=== PATIENT | female | born 1965 | race Hispanic/Latino ===

== ENCOUNTER 2022-01-09 20:35 | Inpatient (IN) | payer MEDICARE ==
[2022-01-09] MEDS ORDERED: LEVALBUTEROL 0.63 MG/3 ML NEBU IH ONE ×2 (21:16→21:17)
--- NOTE | 2022-01-09 21:23 | Emergency Department Report ---
ED General Adult HPI - General Stated complaint: SOB PUI?: Yes Time Seen by Provider: 01/09/22 21:12 Source: RN/MD - History of Present Illness Initial comments: Information was obtained from the day nurse who left for the day. According to nurse, EMS brought here patient with medical history of COPD was found short of breath and albuterol Solu-Medrol and also magnesium sulfate was given in route. On my arrival patient was satting in mid 80s on nonrebreather; immediate verbal orders was to get an RT to put the patient on BiPAP. At the time my initial evaluation review of system was unobtainable given that patient was confused but easily arousable. 1 hour after patient in the ER, daughter came and provided additional information. Daughter states mother has history of COPD on oxygen, seizure, schizophrenia, anxiety, depression; she called 911 because mother was confused when she came home. The daughter denies any myocardial infarction, congestive heart failure, stroke, diabetes, or hypertension of the mother. During my reevaluation of the patient, patient is on BiPAP satting in mid 90s and easily arousable but doze off easily. - Related Data Allergies Allergy/AdvReac Type Severity Reaction Status Date / Time Penicillins Allergy Shortness Verified 01/09/22 22:04 of Breath ED Review of Systems ROS: Stated complaint: SOB Other details as noted in HPI Comment: Unobtainable due to pts medical conditions ED Past Medical Hx - Past Medical History Previous Medical History?: Yes Hx COPD: Yes ED Physical Exam - General Limitations: Altered Mental Status - Head Head exam: Present: atraumatic, normocephalic, normal inspection - Eye Eye exam: Present: normal appearance, PERRL, EOMI Pupils: Present: normal accommodation - ENT ENT exam: Present: normal exam, mucous membranes moist - Neck Neck exam: Present: normal inspection, full ROM - Respiratory Respiratory exam: Present: normal lung sounds bilaterally - Cardiovascular Cardiovascular Exam: Present: regular rate, normal rhythm, normal heart sounds - GI/Abdominal GI/Abdominal exam: Present: soft - Extremities Exam Extremities exam: Present: normal inspection, full ROM, normal capillary refill - Back Exam Back exam: Present: normal inspection, full ROM - Neurological Exam Neurological exam: Present: altered - Skin Skin exam: Present: normal color ED Course Vital Signs 01/09/22 01/09/22 01/09/22 20:41 21:12 21:15 Temperature Pulse Rate 118 H 118 H Pulse Rate [ Throughout] Respiratory 30 H 16 39 H Rate Respiratory Rate [ Throughout] Blood Pressure Blood Pressure [Right] O2 Sat by Pulse 94 96 Oximetry 01/09/22 01/09/22 01/09/22 21:31 21:45 22:01 Temperature Pulse Rate 120 H 116 H 114 H Pulse Rate [ Throughout] Respiratory 37 H 27 H 40 H Rate Respiratory Rate [ Throughout] Blood Pressure Blood Pressure [Right] O2 Sat by Pulse 98 95 97 Oximetry 01/09/22 01/09/22 01/09/22 22:05 22:14 22:15 Temperature 100.6 F H Pulse Rate 114 H 113 H Pulse Rate [ Throughout] Respiratory 26 H 35 H Rate Respiratory Rate [ Throughout] Blood Pressure 93/55 93/55 Blood Pressure 93/55 [Right] O2 Sat by Pulse 94 95 96 Oximetry 01/09/22 01/09/22 01/09/22 22:31 22:45 22:47 Temperature Pulse Rate 107 H 103 H Pulse Rate [ 105 H Throughout] Respiratory 34 H 36 H Rate Respiratory 26 H Rate [ Throughout] Blood Pressure 94/50 94/50 Blood Pressure [Right] O2 Sat by Pulse 96 97 Oximetry 01/09/22 01/09/22 01/10/22 23:01 23:15 00:29 Temperature Pulse Rate 108 H 109 H Pulse Rate [ Throughout] Respiratory 35 H 29 H 29 H Rate Respiratory Rate [ Throughout] Blood Pressure 102/55 102/55 102/55 Blood Pressure [Right] O2 Sat by Pulse 95 94 100 Oximetry 01/10/22 01/10/22 01/10/22 00:31 00:45 01:01 Temperature Pulse Rate Pulse Rate [ Throughout] Respiratory 30 H 29 H 36 H Rate Respiratory Rate [ Throughout] Blood Pressure 102/55 102/55 102/55 Blood Pressure [Right] O2 Sat by Pulse 100 94 94 Oximetry 01/10/22 01/10/22 01/10/22 01:15 01:31 01:45 Temperature Pulse Rate 100 H 93 H Pulse Rate [ Throughout] Respiratory 27 H 16 32 H Rate Respiratory Rate [ Throughout] Blood Pressure 102/55 102/55 102/47 Blood Pressure [Right] O2 Sat by Pulse 93 92 Oximetry - Reevaluation(s) Reevaluation #1: 01/09/22 21:24 This patient has been on BiPAP patient has become more alert and "wakening up" and sating in low 90s.; will continue to evaluate the patient and pending image/labs to return. 01/09/22 22:11 DAUGHTER IS IN THE ROOM AND PROVIDED ADDITIONAL INFORMATION. STATES MOTHER HAS HISTORY OF COPD ON OXYGEN, SEIZURE, SCHIZOPHRENIA, ANXIETY, DEPRESSION CALLED 911 BECAUSE MOTHER WAS CONFUSED; DENIES SC, CHF, STROKE, DIABETES, OR HYPERTENSION. DURING MY REEVALUATION OF PATIENT, PATIETN ON BIPAP SATING MID 90S AND EASILY AROUSABLE 01/09/22 23:11 D-dimer elevated in the patient who appears to be somewhat confused and also satting in mid 80s with tachycardia and also slightly hypotensive, aware that patient's GFR is a 36 however will need CTPA to rule out submassive and massive PE. Therefore we will go ahead and proceed with CTPA. 01/10/22 00:59 CTPA NEGATIVE FOR PE; PATIENT STILL SOMEWHAT CONFUSED; PENDING CT OF HEAD. I AM ALSO PENDING UDS (RN AWARE NEED STRAIGHT CATH) 01/10/22 01:49 NURSE CAME UP TO ME AND INFORMED ME URINE WAS JUST OBTAINED; WILL FOLLOW UP ON UA AND UDS. 01/10/22 03:[address] TORO WHO KINDLY ACCEPTED THE PATIENT. ED Medical Decision Making - Lab Data Result diagrams: 01/09/22 21:26 01/09/22 21:26 - EKG Data -: EKG Interpreted by Me Rate: tachycardia - EKG Data 01/09/22 21:26 atrial flutter at 120 bpm; no st elevation or depression. Critical care attestation.: If time is entered above; I have spent that time in minutes in the direct care of this critically ill patient, excluding procedure time. ED Disposition Clinical Impression: Altered mental status, Respiratory acidosis with metabolic acidosis Disposition: ADMITTED INPATIENT Is pt being admited?: Yes Does the pt Need Aspirin: No Condition: Stable Referrals: RAULITO SIN MD [Primary Care Provider] - 3-5 Days Time of Disposition: 03:03
--- NOTE | 2022-01-09 21:49 | XRay Report ---
CHEST 1 VIEW 01/09/2022 8:41 PM INDICATION / CLINICAL INFORMATION: SOB. Altered mental status. History of COPD. COMPARISON: Acute abdominal series from 11/10/2008. FINDINGS: SUPPORT DEVICES: None. HEART / MEDIASTINUM: No significant abnormality. LUNGS / PLEURA: There are nonspecific bibasilar opacities, right greater than left. No significant pl eural effusion. No pneumothorax. ADDITIONAL FINDINGS: No significant additional findings. IMPRESSION: Nonspecific bibasilar opacities could represent pneumonia or atelectasis. Signer Name: Jesse Escalona MD Signed: 01/09/2022 9:45 PM Workstation Name: [id number]
[2022-01-09 22:06] LABS: Hematocrit 43.3 % (30.3-42.9); Hemoglobin 14.3 gm/dl (10.1-14.3); Mean Corpuscular HGB Conc 33 % (30-34); Mean Corpuscular Volume 109 fl (79-97); Platelet Count 103 K/mm3 (140-440); Red Blood Count 3.96 M/mm3 (3.65-5.03); Red Cell Distribution Width 13.1 % (13.2-15.2)
[2022-01-09 22:07] LABS: Albumin 4.1 g/dL (3.9-5); Calcium 8.6 mg/dL (8.4-10.2)
[2022-01-09 22:12] LABS: ABG Base Excess -1.8 mmol/L (-2.0-3.0); ABG HCO3 24.8 mmol/L (20.0-26.0); ABG Methemoglobin 0.6 % (0.0-1.5); ABG Oxygen Saturation 98.9 % (95.0-99.0); ABG PCO2 49.3 mm Hg; ABG PH 7.319 pH Units (7.350-7.450); ABG PO2 166.2 mm Hg (80.0-90.0)
--- NOTE | 2022-01-10 00:53 | Cat Scan Report ---
CTA CHEST WITH CONTRAST INDICATION / CLINICAL INFORMATION: SAT MID 80S W/ ELEVATED DDIMER; PE. TECHNIQUE: Axial CT images were obtained through the chest after injection of 100 cc Omnipaque 350 IV contrast. 3 plane MIP and/or 3D reconstructions were produced. All CT scans at this location are per formed using CT dose reduction for ALARA by means of automated exposure control. COMPARISON: None available. FINDINGS: VASCULAR FINDINGS: PULMONARY ARTERY: Pulmonary artery is normal in size. No filling defects are present compatible with pulmonary artery embolus.. THORACIC AORTA: No significant abnormality. CORONARY ARTERY CALCIFICATION: Absent -- None. NONVASCULAR FINDINGS: LOWER NECK: Soft tissues and musculature of the lower neck demonstrate no significant abnormality. Th e thyroid demonstrates no significant abnormality. HEART: No significant abnormality. Trace pericardial fluid. MEDIASTINUM / KRISTYN: No significant abnormality. ESOPHAGUS: No significant abnormality. LYMPH NODES: No adenopathy within the axilla, mediastinum, or kristyn. LUNGS: Lungs are blurred by motion. Moderate centrilobular emphysema is present. Tree-in-bud nodular airspace attenuation right upper lobe. Mild dependent atelectasis bilaterally. The lower lungs demons trate bronchial wall thickening. PLEURA: Trace dependent bilateral pleural effusions. No pneumothorax. THORACIC SOFT TISSUES: No significant abnormality of the chest wall or upper thoracic musculature. BONES: No significant skeletal abnormalities. ADDITIONAL CHEST FINDINGS: None. UPPER ABDOMEN: No significant abnormality. IMPRESSION: 1. No CT evidence for pulmonary embolism. 2. Minimal tree-in-bud attenuation right upper lobe compatible with reactive or inflammatory airways disease. Signer Name: William Merrill II, MD Signed: 01/10/2022 12:48 AM Workstation Name: [id number]
--- NOTE | 2022-01-10 00:54 | Cat Scan Report ---
CT HEAD WITHOUT CONTRAST INDICATION / CLINICAL INFORMATION: ams. TECHNIQUE: CT head was performed without administration of intravenous contrast. All CT scans at this location are performed using CT dose reduction for ALARA by means of automated exposure control. COMPARISON: None available. FINDINGS: CEREBRAL HEMISPHERES: Generalized atrophy and bilateral regions of periventricular white matter hypoa ttenuation compatible with microvascular ischemia are demonstrated. No midline shift. Basal cisterns patent. HEMORRHAGE: None. CEREBELLUM / BRAINSTEM: No significant abnormality. ORBITS: No significant abnormality. SOFT TISSUES: No significant abnormality. SKULL: No significant abnormality. PARANASAL SINUSES / MASTOID AIR CELLS: Normal as visualized. ADDITIONAL FINDINGS: None. IMPRESSION: 1. No acute intracranial abnormality. Signer Name: William Merrill II, MD Signed: 01/10/2022 12:50 AM Workstation Name: [id number]
[2022-01-10 02:07] LABS: Amphetamine Screen,Urine PRESUMPTIVE NEGATIVE; Benzodiazepines Screen,Urine PRESUMPTIVE NEGATIVE; Cannabinoid Screen,Urine PRESUMPTIVE NEGATIVE; Cocaine Screen,Urine PRESUMPTIVE NEGATIVE; Methadone Screen,Urine PRESUMPTIVE NEGATIVE; Opiate Screen,Urine PRESUMPTIVE NEGATIVE
[2022-01-10 02:33] LABS: Mucus,Urine FEW /HPF; WBC,Urine < 1.0 /HPF (0.0-6.0)
[2022-01-10] MEDS ORDERED: SODIUM CHLORIDE 0.9% 1000 ML 1,000 ML IV ONE (02:35)
[2022-01-10] MEDS ORDERED: SODIUM CHLORIDE 0.9% 1000 ML IV SOLN IV ONE (02:43)
[2022-01-10 02:51] LABS: Bilirubin,Urine Negative (Negative); Color,Urine Yellow (Yellow)
[2022-01-10 02:54] LABS: Blood,Urine Negative (Negative)
--- NOTE | 2022-01-10 03:38 | History and Physical Report ---
History of Present Illness Date of examination: 01/10/22 Date of admission: 01/10/22 Chief complaint: Altered mental status. Shortness of breath History of present illness: 56-year-old female with known history of COPD, seizure disorder and schizophrenia brought into the emergency room today via EMS accompanied by daughter for evaluation of shortness of breath. Patient was also slightly confused and daughter had indicated that patient presents this way when her CO2 is elevated. En route to the hospital patient was given some nebulizing treatments, Solu-Medrol, magnesium sulfate with some improvement. Upon arrival in the emergency room patient was found to be in respiratory distress with O2 saturation in the 80s patient was subsequently placed on nonrebreather. Most of the history was obtained from the daughter who was by the bedside as patient is unable to give any history at this time. During the course of her stay in the emergency room patient was found to be slightly hypotensive and was given boluses of IV fluid. Work-up in the emergency room today, chest x-ray shows nonspecific but basilar opacities which could represent pneumonia or atelectasis. CT angiogram of the chest shows no evidence of pulmonary embolism. There is minimal tree-in-bud attenuation right upper lobe compatible with reactive or inflammatory airway disease. Patient has been admitted with COPD exacerbation with possible underlying pneumonia. Past History Past Medical History: COPD Past Surgical History: No surgical history Social history: no significant social history Family history: no significant family history Medications and Allergies Allergies Allergy/AdvReac Type Severity Reaction Status Date / Time Penicillins Allergy Shortness Verified 01/09/22 22:04 of Breath Active Meds: Active Medications Acetaminophen (Acetaminophen 325 Mg Tab) 650 mg PO Q6H PRN PRN Reason: Pain MILD(1-3)/Fever >100.5/CORTES Albuterol (Albuterol 2.5 Mg/3 Ml Nebu) 2.5 mg IH Q3HRT PRN PRN Reason: Shortness Of Breath Albuterol/Ipratropium (Ipratropium/Albuterol Sulfate 3 Ml Ampul.Neb) 1 ampul IH Q4HRT HAMLET Heparin Sodium (Porcine) (Heparin 5,000 Unit/1 Ml Vial) 5,000 unit SUB-Q Q8HR HAMLET Sodium Chloride (Nacl 0.9% 1000 Ml) 1,000 mls @ 999 mls/hr IV BOLUS ONE Stop: 01/10/22 03:35 Sodium Chloride (Nacl 0.9% 1000 Ml) 1,000 mls @ 125 mls/hr IV DIRECT HAMLET Magnesium Hydroxide (Magnesium Hydroxide (Mom) Oral Liqd Udc) 30 ml PO Q4H PRN PRN Reason: Constipation Methylprednisolone Sodium Succinate (Methylprednisolone Sod Succinate 40 Mg/1 Ml Inj) 40 mg IV Q8HR HAMLET Morphine Sulfate (Morphine 2 Mg/1 Ml Inj) 2 mg IV Q4H PRN PRN Reason: Pain, Moderate (4-6) Morphine Sulfate (Morphine 4 Mg/1 Ml Inj) 4 mg IV Q4H PRN PRN Reason: Pain , Severe (7-10) Ondansetron HCl (Ondansetron 4 Mg/2 Ml Inj) 4 mg IV Q8H PRN PRN Reason: Nausea And Vomiting Sodium Chloride (Sodium Chloride 0.9% 10 Ml Flush Syringe) 10 ml IV BID HAMLET Sodium Chloride (Sodium Chloride 0.9% 10 Ml Flush Syringe) 10 ml IV PRN PRN PRN Reason: LINE FLUSH Review of Systems ROS unobtainable: due to mental status Exam - Constitutional Vitals: Temp Pulse Resp BP Pulse Ox 100.6 F H 93 H 32 H 102/47 92 01/09/22 22:05 01/10/22 01:45 01/10/22 01:45 01/10/22 01:45 01/10/22 01:45 General appearance: Present: mild distress, well-nourished - EENT Eyes: Present: PERRL, EOM intact. Absent: scleral icterus ENT: hearing intact, clear oral mucosa, dentition normal - Neck Neck: Present: supple, normal ROM - Respiratory Respiratory effort: normal Respiratory: bilateral: wheezing (Few scattered wheezes) - Cardiovascular Rhythm: regular Heart Sounds: Present: S1 & S2. Absent: gallop, systolic murmur, diastolic murmur, rub, click - Extremities Extremities: no ischemia, pulses intact, pulses symmetrical, No edema, normal temperature, normal color, Full ROM Peripheral Pulses: within normal limits - Abdominal General gastrointestinal: Present: soft, non-tender, non-distended, normal bowel sounds. Absent: mass - Integumentary Integumentary: Present: clear, warm, dry, normal turgor. Absent: rash - Musculoskeletal Musculoskeletal: strength equal bilaterally - Psychiatric Psychiatric: appropriate mood/affect, intact judgment & insight, memory intact, cooperative - Neurologic Neurologic: CNII-XII intact, no focal deficits, moves all extremities Results - Labs CBC & Chem 7: 01/09/22 21:26 01/09/22 21: Labs: Abnormal lab results 01/09/22 01/09/22 01/09/22 Range/Units 21:26 21:26 21:26 Hct 43.3 H (30.3-42.9) % MCV 109 H (79-97) fl MCH 36 H (28-32) pg RDW 13.1 L (13.2-15.2) % Plt Count 103 L (140-440) K/mm3 D-Dimer 561.38 H (0-234) ng/mlDDU ABG pH (7.350-7.450) pH Units ABG pO2 (80.0-90.0) mm Hg Sodium 135 L (137-145) mmol/L Chloride 96.9 L (98-107) mmol/L BUN 22 H (7-17) mg/dL Creatinine 1.5 H (0.6-1.2) mg/dL Magnesium 2.50 H (1.7-2.3) mg/dL AST 71 H (5-40) units/L 01/09/22 Range/Units 22:00 Hct (30.3-42.9) % MCV (79-97) fl MCH (28-32) pg RDW (13.2-15.2) % Plt Count (140-440) K/mm3 D-Dimer (0-234) ng/mlDDU ABG pH 7.319 L (7.350-7.450) pH Units ABG pO2 166.2 H (80.0-90.0) mm Hg Sodium (137-145) mmol/L Chloride (98-107) mmol/L BUN (7-17) mg/dL Creatinine (0.6-1.2) mg/dL Magnesium (1.7-2.3) mg/dL AST (5-40) units/L Assessment and Plan Assessment: 1. Acute respiratory failure 2. COPD exacerbation 3. Pneumonia 4. History of seizure disorder 5. Hypotension Plan: 1. Patient admitted placed on nebulizer treatments and IV steroid. 2. We will also initiate IV antibiotics for possible underlying pneumonia. 3. Keep O2 saturation greater equal to 92%. 4. Resume routine home medications once reconciled. DVT Prophylaxis: Subcutaneous heparin. Code Status: Full Code.
[2022-01-10] MEDS ORDERED: MORPHINE 4 MG/1 ML INJ IV PRN (04:00)
[2022-01-10] MEDS ORDERED: MORPHINE 2 MG/1 ML INJ IV PRN (04:00)
[2022-01-10] MEDS ORDERED: ACETAMINOPHEN 325 MG TAB PO PRN (04:00)
[2022-01-10] MEDS ORDERED: ONDANSETRON 4 MG/2 ML INJ IV PRN (04:00)
[2022-01-10] MEDS ORDERED: SODIUM CHLORIDE 0.9% 1000 ML 1,000 ML IV SCH (04:00)
[2022-01-10] MEDS ORDERED: MAGNESIUM HYDROXIDE (MOM) ORAL LIQD UDC PO PRN (04:00)
[2022-01-10] MEDS ORDERED: ALBUTEROL 2.5 MG/3 ML NEBU IH PRN (05:00)
[2022-01-10] MEDS: IPRATROPIUM/ALBUTEROL SULFATE 3 ML AMPUL.NEB IH SCH ×5 (05:30→20:24)
[2022-01-10] MEDS: HEPARIN 5,000 UNIT/1 ML VIAL SUB-Q SCH ×3 (07:27→21:00)
--- NOTE | 2022-01-10 10:26 | Progress Note ---
<JOE GARRIDO - Last Filed: 01/10/22 17:37> Assessment and Plan Assessment and plan: This is a 56-year-old female with know past medical history of COPD, chronic respiratory failure, O2 dependent at home, seizure disorder, and schizophrenia admitted for acute on chronic respiratory failure and COPD exacerbation Hospital Course to Date: 01/10: Remains on continuous Bipap. BP remains bordeline this am. Continue IV steroids, current empric IV abx, and continuous IVF X1bag. Cultures, procal and CRP pending. Continue O2 supplementation, wean O2 supplementation once more awake. Resume home meds once list is available. Assessment and Plan #Acute on Chronic Respiratory Failure #COPD Exacerbation #Possible Pneumonia #O2 Dependent at home #Current Smoker - Presented with SOB and hypoxia requiring continuous Bipap - CXR reveals nonspecific bibasilar opacities which could represent pneumonia or atelectasis. - CTA chest shows no evidence of pulmonary embolism. There is minimal tree-in-bud attenuation right upper lobe compatible with reactive or i nflammatory airway disease. - Continue IV steroids, Nebx treatment, and current empiric IV Abx for now - Continue O2 supplementation and wean down to home O2 at 2L NC as tolerated - Continue SPO2 monitoring for SPO2 goal above 92% - CCM is also following #Hypotension #Hypovolemia vs Sepsis - Presented with low grade fever, hypotension, and tachycardia - BP and tachycardia improved post IVF hydration - BP remains boderline this am - Continue rehydration with cont. IVF - Continue blood pressure monitor per protocol - Maintain MAP above 65 #Possible Pneumonia #R/o Sepsis - Presented with low grade fever, hypotension, and tachycardia - CXR reveals nonspecific bibasilar opacities which could represent pneumonia or atelectasis. - CTA chest shows no evidence of pulmonary embolism. There is minimal tree-in-bud attenuation right upper lobe compatible with reactive or inflammatory airway disease. - Blood cultures pending - CRP and procal pending - Continue current empiric IV Abx - F/U on cultures - Daily CBC monitor - Consider ID consult if febrile or/and if leukocytosis occur #Acute Kidney Injury(RICHI) most likely ATN - probably due to hypoperfusion/hypotension - Baseline renal function is unknown - Continue rehydration with cont. IVF - Strict intake and output - Avoid nephrotoxic medications; Renally dose medications - Monitor and replace electrolytes as needed #Acute Metabolic Encephalopathy #H/o Seizure Disorder and Schizophrenia - Presented with AMS, probably due hypercapnia vs infectious process - On Continue Bipap and Iv Abx, mentation improved this am - CT head w/o showed no acute abnormalities - Resume home meds once list available - Avoid benzodiazepine to reduce the possibility of delirium - PRN Analgesia for pain control - Maintenance of sleep-wake cycle #Thrombocytopenia(POA) - Presented with low plt - No s/s of any active bleeding, H&H stable - On Heparin SubQ - Continue to trend CBC #Nicotine Dependence - Per patient's family, patient smoke close to a pack of cigarettes a day. - Smoking cessation education provided to patient and patient's daughter at the bedside. They verbalized understanding and agreed with the info provided - Nicotine patch ordered #GI/DVT Prophylaxis - PPI- Pepcid - Heparin SubQ - SCDs to bilateral lower extremities while in bed #Advance Care Planning - Disease education data, care plan, diagnoses, and prognosis were discussed with patient and patient's daughter at the bedside. Patient is a FULL code. Patient and patient's daughter acknowledged understanding and agreement with current care plan. +CCT 60 minutes History Interval history: Patient seen and examined at the bedside. Drowsy but easily arousable with mild stimuli. Remains on continuous Bipap SPO2 above 95%, BP remains [facility] Hospitalist Physical - Constitutional Vitals: Temp Pulse Resp BP Pulse Ox 100.6 F H 87 25 H 112/58 95 01/09/22 22:05 01/10/22 10:11 01/10/22 10:11 01/10/22 10:11 01/10/22 10:11 General appearance: Present: no acute distress, well-nourished, obese - EENT Eyes: Present: PERRL, EOM intact ENT: hearing intact - Neck Neck: Present: normal ROM - Respiratory Respiratory effort: normal Respiratory: bilateral: wheezing - Cardiovascular Rhythm: regular Heart Sounds: Present: S1 & S2 - Extremities Extremities: no ischemia, pulses intact, pulses symmetrical Peripheral Pulses: within normal limits - Abdominal General gastrointestinal: soft, non-distended, normal bowel sounds - Integumentary Integumentary: Present: warm, dry - Psychiatric Psychiatric: appropriate mood/affect, cooperative, other (Drowsy but easily arousable) - Neurologic Neurologic: moves all extremities, other (Drowsy but easily arousable) - Allied Health Allied health notes reviewed: nursing Results - Labs CBC & Chem 7: 01/09/22 21:26 01/09/22 21:26 Labs: Laboratory Last Values WBC 4.5 K/mm3 (4.5-11.0) 01/09/22 21: RBC 3.96 M/mm3 (3.65-5.03) 01/09/22 21: Hgb 14.3 gm/dl (10.1-14.3) 01/09/22 21: Hct 43.3 % (30.3-42.9) H 01/09/22 21: MCV 109 fl (79-97) H 01/09/22 21: MCH 36 pg (28-32) H 01/09/22 21: MCHC 33 % (30-34) 01/09/22: RDW 13.1 % (13.2-15.2) L 01/09/22: Plt Count 103 K/mm3 (140-440) L 01/09/22 21: D-Dimer 561.38 ng/mlDDU (0-234) H 01/09/22 21: ABG pH 7.319 pH Units (7.350-7.450) L 01/09/22 22:00 ABG pCO2 49.3 mm Hg 01/09/22 22:00 ABG pO2 166.2 mm Hg (80.0-90.0) H 01/09/22 22:00 ABG HCO3 24.8 mmol/L (20.0-26.0) 01/09/22 22:00 ABG O2 Saturation 98.9 % (95.0-99.0) 01/09/22 22:00 ABG O2 Content 19.3 (0.0-44) 01/09/22 22:00 ABG Base Excess -1.8 mmol/L (-2.0-3.0) 01/09/22 22:00 ABG Hemoglobin 13.9 gm/dl (12.0-16.0) 01/09/22 22:00 ABG Carboxyhemoglobin 1.2 % (0.0-5.0) 01/09/22 22:00 ABG Methemoglobin 0.6 % (0.0-1.5) 01/09/22 22:00 Oxyhemoglobin 97.1 % (95.0-99.0) 01/09/22 22:00 FiO2 70 % 01/09/22 22:00 Sodium 135 mmol/L (137-145) L 01/09/22 21:26 Potassium 4.6 mmol/L (3.6-5.0) 01/09/22 21:26 Chloride 96.9 mmol/L (98-107) L 01/09/22 21:26 Carbon Dioxide 23 mmol/L (22-30) 01/09/22 21:26 Anion Gap 20 mmol/L 01/09/22 21:26 BUN 22 mg/dL (7-17) H 01/09/22 21:26 Creatinine 1.5 mg/dL (0.6-1.2) H 01/09/22 21:26 Estimated GFR 36 ml/min 01/09/22 21:26 BUN/Creatinine Ratio 15 % 01/09/22 21:26 Glucose 93 mg/dL (65-100) 01/09/22 21:26 Lactic Acid 0.70 mmol/L (0.7-2.0) 01/10/22 03:21 Calcium 8.6 mg/dL (8.4-10.2) 01/09/22 21:26 Magnesium 2.50 mg/dL (1.7-2.3) H 01/09/22 21:26 Total Bilirubin 0.20 mg/dL (0.1-1.2) 01/09/22 21:26 AST 71 units/L (5-40) H 01/09/22 21:26 ALT 15 units/L (7-56) 01/09/22 21:26 Alkaline Phosphatase 77 units/L (35-129) 01/09/22 21:26 Ammonia 25.0 umol/L (25-60) 01/09/22 21:33 NT-Pro-B Natriuret Pep 829.3 pg/mL (0-900) 01/09/22 21:26 Total Protein 6.5 g/dL (6.3-8.2) 01/09/22 21:26 Albumin 4.1 g/dL (3.9-5) 01/09/22 21:26 Albumin/Globulin Ratio 1.7 % 01/09/22 21:26 Urine Color Yellow (Yellow) 01/10/22 01:47 Urine Turbidity Clear (Clear) 01/10/22 01:47 Urine pH 6.0 (5.0-7.0) 01/10/22 01:47 Ur Specific [place] 1.010 (1.003-1.030) 01/10/22 01:47 Urine Protein 30 mg/dl mg/dL (Negative) 01/10/22 01:47 Urine Glucose (UA) Negative mg/dL (Negative) 01/10/22 01:47 Urine Ketones Negative mg/dL (Negative) 01/10/22 01:47 Urine Blood Negative (Negative) 01/10/22 01:47 Urine Nitrite Negative (Negative) 01/10/22 01:47 Ur Reducing Substances Not Reportable 01/10/22 01:47 Urine Bilirubin Negative (Negative) 01/10/22 01:47 Urine Ictotest Not Reportable 01/10/22 01:47 Urine Urobilinogen 0.0 mg/dL (<2.0) 01/10/22 01:47 Ur Leukocyte Esterase Negative (Negative) 01/10/22 01:47 Urine WBC (Auto) < 1.0 /HPF (0.0-6.0) 01/10/22 01:47 Urine RBC (Auto) 1.0 /HPF (0.0-6.0) 01/10/22 01:47 U Epithel Cells (Auto) 9.0 /HPF (0-13.0) 01/10/22 01:47 Urine Mucus Few /HPF 01/10/22 01:47 Urine Opiates Screen Presumptive negative 01/10/22 01:47 Urine Methadone Screen Presumptive negative 01/10/22 01:47 Ur Barbiturates Screen Presumptive negative 01/10/22 01:47 Ur Phencyclidine Scrn Presumptive negative 01/10/22 01:47 Ur Amphetamines Screen Presumptive negative 01/10/22 01:47 U Benzodiazepines Scrn Presumptive negative 01/10/22 01:47 Urine Cocaine Screen Presumptive negative 01/10/22 01:47 U Marijuana (THC) Screen Presumptive negative 01/10/22 01:47 Drugs of Abuse Note Disclamer 01/10/22 01:47 Microbiology: Microbiology 01/10/22 03:21 Peripheral/Venous Blood Culture - Preliminary Culture in Progress 01/10/22 03:21 Peripheral/Venous Blood Culture - Preliminary Culture in Progress Active Medications - Current Medications Current Medications: Generic Name Dose Route Start Last Admin Trade Name Freq PRN Reason Stop Dose Admin Acetaminophen 650 mg 01/10/22 04:00 Acetaminophen 325 Mg Tab PO Q6H PRN Pain MILD(1-3)/Fever >100.5/CORTES Albuterol 2.5 mg 01/10/22 05:00 Albuterol 2.5 Mg/3 Ml Nebu IH Q3HRT PRN Shortness Of Breath Albuterol/Ipratropium 1 ampul 01/10/22 04:00 01/10/22 08:48 Ipratropium/Albuterol Sulfate 3 Ml Ampul.Neb IH 1 ampul Q4HRT HAMLET Administration Famotidine 20 mg 01/10/22 10:00 Famotidine 20 Mg/2 Ml Inj IV DAILY [facility] Heparin Sodium (Porcine) 5,000 unit 01/10/22 06:00 Heparin 5,000 Unit/1 Ml Vial SUB-Q Q8HR [facility] Sodium Chloride 1,000 mls @ 100 mls/hr 01/10/22 04:00 Nacl 0.9% 1000 Ml IV 01/10/22 13:59 DIRECT [facility] Levofloxacin/Dextrose 750 mg in 150 mls @ 100 mls/hr 01/12/22 10:00 Levaquin 750mg/150ml IV Q48HR [facility] Protocol Magnesium Hydroxide 30 ml 01/10/22 04:00 Magnesium Hydroxide (Mom) Oral Liqd Udc PO Q4H PRN Constipation Methylprednisolone Sodium Succinate 40 mg 01/10/22 06:00 Methylprednisolone Sod Succinate 40 Mg/1 Ml Inj IV Q8HR [facility] Morphine Sulfate 2 mg 01/10/22 04:00 Morphine 2 Mg/1 Ml Inj IV Q4H PRN Pain, Moderate (4-6) Morphine Sulfate 4 mg 01/10/22 04:00 Morphine 4 Mg/1 Ml Inj IV Q4H PRN Pain , Severe (7-10) Ondansetron HCl 4 mg 01/10/22 04:00 Ondansetron 4 Mg/2 Ml Inj IV Q8H PRN Nausea And Vomiting Sodium Chloride 10 ml 01/10/22 10:00 Sodium Chloride 0.9% 10 Ml Flush Syringe IV BID HAMLET Sodium Chloride 10 ml 01/10/22 04:00 Sodium Chloride 0.9% 10 Ml Flush Syringe IV PRN PRN LINE FLUSH <TABITHA FLORIAN Last Filed: 01/11/22 07:15> Assessment and Plan Assessment and plan: I saw and evaluated the patient. I agree with the findings and the plan of care as documented in the Nurse Practitioner's~note, with the following corrections and additions. Hospitalist Physical - Constitutional Vitals: Temp Pulse Resp BP Pulse Ox 99.2 F 90 29 H 97/50 96 01/11/22 07:08 01/11/22 06:00 01/11/22 06:00 01/11/22 06:00 01/11/22 06:00 Results - Labs CBC & Chem 7: 01/11/22 04:21 01/11/22 04:21 Labs: Laboratory Last Values WBC 5.6 K/mm3 (4.5-11.0) 01/11/22 04:21 RBC 3.41 M/mm3 (3.65-5.03) L 01/11/22 04:21 Hgb 12.5 gm/dl (10.1-14.3) 01/11/22 04:21 Hct 36.9 % (30.3-42.9) D 01/11/22 04:21 MCV 108 fl (79-97) H 01/11/22 04:21 MCH 37 pg (28-32) H 01/11/22 04:21 MCHC 34 % (30-34) 01/11/22 04:21 RDW 12.7 % (13.2-15.2) L 01/11/22 04:21 Plt Count 89 K/mm3 (140-440) L 01/11/22 04:21 Lymph % (Auto) 11.7 % (13.4-35.0) L 01/11/22 04:21 [place] % (Auto) 5.8 % (0.0-7.3) 01/11/22 04:21 Eos % (Auto) 0.0 % (0.0-4.3) 01/11/22 04:21 Baso % (Auto) 0.1 % (0.0-1.8) 01/11/22 04:21 Lymph # (Auto) 0.7 K/mm3 (1.2-5.4) L 01/11/22 04:21 [place] # (Auto) 0.3 K/mm3 (0.0-0.8) 01/11/22 04:21 Eos # (Auto) 0.0 K/mm3 (0.0-0.4) 01/11/22 04:21 Baso # (Auto) 0.0 K/mm3 (0.0-0.1) 01/11/22 04:21 Seg Neutrophils % 82.4 % (40.0-70.0) H 01/11/22 04:21 Seg Neutrophils # 4.6 K/mm3 (1.8-7.7) 01/11/22 04:21 D-Dimer 561.38 ng/mlDDU (0-234) H 01/09/22 21:26 ABG pH 7.319 pH Units (7.350-7.450) L 01/09/22 22:00 ABG pCO2 49.3 mm Hg 01/09/22 22:00 ABG pO2 166.2 mm Hg (80.0-90.0) H 01/09/22 22:00 ABG HCO3 24.8 mmol/L (20.0-26.0) 01/09/22 22:00 ABG O2 Saturation 98.9 % (95.0-99.0) 01/09/22 22:00 ABG O2 Content 19.3 (0.0-44) 01/09/22 22:00 ABG Base Excess -1.8 mmol/L (-2.0-3.0) 01/09/22 22:00 ABG Hemoglobin 13.9 gm/dl (12.0-16.0) 01/09/22 22:00 ABG Carboxyhemoglobin 1.2 % (0.0-5.0) 01/09/22 22:00 ABG Methemoglobin 0.6 % (0.0-1.5) 01/09/22 22:00 Oxyhemoglobin 97.1 % (95.0-99.0) 01/09/22 22:00 FiO2 70 % 01/09/22 22:00 Sodium 140 mmol/L (137-145) 01/11/22 04:21 Potassium 4.6 mmol/L (3.6-5.0) 01/11/22 04:21 Chloride 104.6 mmol/L (98-107) 01/11/22 04:21 Carbon Dioxide 28 mmol/L (22-30) 01/11/22 04:21 Anion Gap 12 mmol/L 01/11/22 04:21 BUN 17 mg/dL (7-17) 01/11/22 04:21 Creatinine 0.9 mg/dL (0.6-1.2) 01/11/22 04:21 Estimated GFR > 60 ml/min 01/11/22 04:21 BUN/Creatinine Ratio 19 % 01/11/22 04:21 Glucose 125 mg/dL (65-100) H 01/11/22 04:21 POC Glucose 118 mg/dL (70-105) H 01/10/22 10:54 Lactic Acid 0.70 mmol/L (0.7-2.0) 01/10/22 03:21 Calcium 7.9 mg/dL (8.4-10.2) L 01/11/22 04:21 Magnesium 2.50 mg/dL (1.7-2.3) H 01/09/22 21:26 Total Bilirubin 0.20 mg/dL (0.1-1.2) 01/09/22 21:26 AST 71 units/L (5-40) H 01/09/22 21:26 ALT 15 units/L (7-56) 01/09/22 21:26 Alkaline Phosphatase 77 units/L (35-129) 01/09/22 21:26 Ammonia 25.0 umol/L (25-60) 01/09/22 21:33 C-Reactive Protein 6.80 mg/dL (0.00-1.30) H 01/10/22 09:27 NT-Pro-B Natriuret Pep 829.3 pg/mL (0-900) 01/09/22 21:26 Total Protein 6.5 g/dL (6.3-8.2) 01/09/22 21:26 Albumin 4.1 g/dL (3.9-5) 01/09/22 21:26 Albumin/Globulin Ratio 1.7 % 01/09/22 21:26 Urine Color Yellow (Yellow) 01/10/22 01:47 Urine Turbidity Clear (Clear) 01/10/22 01:47 Urine pH 6.0 (5.0-7.0) 01/10/22 01:47 Ur Specific [place] 1.010 (1.003-1.030) 01/10/22 01:47 Urine Protein 30 mg/dl mg/dL (Negative) 01/10/22 01:47 Urine Glucose (UA) Negative mg/dL (Negative) 01/10/22 01:47 Urine Ketones Negative mg/dL (Negative) 01/10/22 01:47 Urine Blood Negative (Negative) 01/10/22 01:47 Urine Nitrite Negative (Negative) 01/10/22 01:47 Ur Reducing Substances Not Reportable 01/10/22 01:47 Urine Bilirubin Negative (Negative) 01/10/22 01:47 Urine Ictotest Not Reportable 01/10/22 01:47 Urine Urobilinogen 0.0 mg/dL (<2.0) 01/10/22 01:47 Ur Leukocyte Esterase Negative (Negative) 01/10/22 01:47 Urine WBC (Auto) < 1.0 /HPF (0.0-6.0) 01/10/22 01:47 Urine RBC (Auto) 1.0 /HPF (0.0-6.0) 01/10/22 01:47 U Epithel Cells (Auto) 9.0 /HPF (0-13.0) 01/10/22 01:47 Urine Mucus Few /HPF 01/10/22 01:47 Urine Creatinine 65.3 mg/dL (0.1-20.0) H 01/10/22 19:50 Urine Sodium 37 mmol/L 01/10/22 19:50 Urine Opiates Screen Presumptive negative 01/10/22 01:47 Urine Methadone Screen Presumptive negative 01/10/22 01:47 Ur Barbiturates Screen Presumptive negative 01/10/22 01:47 Ur Phencyclidine Scrn Presumptive negative 01/10/22 01:47 Ur Amphetamines Screen Presumptive negative 01/10/22 01:47 U Benzodiazepines Scrn Presumptive negative 01/10/22 01:47 Urine Cocaine Screen Presumptive negative 01/10/22 01:47 U Marijuana (THC) Screen Presumptive negative 01/10/22 01:47 Drugs of Abuse Note Disclamer 01/10/22 01:47 Microbiology: Microbiology 01/10/22 03:21 Peripheral/Venous Blood Culture - Preliminary NO GROWTH AFTER 24 HOURS 01/10/22 03:21 Peripheral/Venous Blood Culture - Preliminary NO GROWTH AFTER 24 HOURS Lemon/IV: Voiding Method External Female Catheter Active Medications - Current Medications Current Medications: Generic Name Dose Route Start Last Admin Trade Name Freq PRN Reason Stop Dose Admin Acetaminophen 650 mg 01/10/22 04:00 Acetaminophen 325 Mg Tab PO Q6H PRN Pain MILD(1-3)/Fever >100.5/CORTES Albuterol 2.5 mg 01/10/22 05:00 Albuterol 2.5 Mg/3 Ml Nebu IH Q3HRT PRN Shortness Of Breath Albuterol/Ipratropium 1 ampul 01/10/22 04:00 01/11/22 04:35 Ipratropium/Albuterol Sulfate 3 Ml Ampul.Neb IH 1 ampul Q4HRT HAMLET Administration Atorvastatin Calcium 20 mg 01/10/22 22:00 01/10/22 21:00 Atorvastatin 20 Mg Tab PO 20 mg HS HAMLET Administration Benztropine Mesylate 2 mg 01/10/22 22:00 01/10/22 21:00 Benztropine 2 Mg Tab PO 2 mg BID HAMLET Administration Divalproex Sodium 500 mg 01/10/22 22:00 01/10/22 20:59 Divalproex Er 500 Mg Tab PO 500 mg BID HAMLET Administration Famotidine 20 mg 01/10/22 10:00 01/10/22 10:55 Famotidine 20 Mg/2 Ml Inj IV 20 mg DAILY HAMLET Administration Heparin Sodium (Porcine) 5,000 unit 01/10/22 06:00 01/11/22 05:40 Heparin 5,000 Unit/1 Ml Vial SUB-Q 5,000 unit Q8HR HAMLET Administration Levofloxacin/Dextrose 750 mg in 150 mls @ 100 mls/hr 01/12/22 10:00 Levaquin 750mg/150ml IV Q48HR HAMLET Protocol Sodium Chloride 1,000 mls @ 100 mls/hr 01/11/22 01:15 01/11/22 01:19 Nacl 0.9% 1000 Ml IV 100 mls/hr DIRECT HAMLET Administration Levetiracetam 500 mg 01/10/22 22:00 01/10/22 21:00 Levetiracetam 500 Mg Tab PO 500 mg BID HAMLET Administration Magnesium Hydroxide 30 ml 01/10/22 04:00 Magnesium Hydroxide (Mom) Oral Liqd Udc PO Q4H PRN Constipation Methylprednisolone Sodium Succinate 40 mg 01/10/22 06:00 01/11/22 05:40 Methylprednisolone Sod Succinate 40 Mg/1 Ml Inj IV 40 mg Q8HR HAMLET Administration Montelukast Sodium 10 mg 01/11/22 10:00 Montelukast 10 Mg Tab PO DAILY HAMLET Morphine Sulfate 2 mg 01/10/22 04:00 Morphine 2 Mg/1 Ml Inj IV Q4H PRN Pain, Moderate (4-6) Morphine Sulfate 4 mg 01/10/22 04:00 Morphine 4 Mg/1 Ml Inj IV Q4H PRN Pain , Severe (7-10) Ondansetron HCl 4 mg 01/10/22 04:00 Ondansetron 4 Mg/2 Ml Inj IV Q8H PRN Nausea And Vomiting Quetiapine Fumarate 100 mg 01/10/22 22:00 01/10/22 21:00 Quetiapine 200 Mg Tab PO 100 mg HS HAMLET Administration Sodium Chloride 10 ml 01/10/22 10:00 01/10/22 20:59 Sodium Chloride 0.9% 10 Ml Flush Syringe IV 10 ml BID HAMLET Administration Sodium Chloride 10 ml 01/10/22 04:00 Sodium Chloride 0.9% 10 Ml Flush Syringe IV PRN PRN LINE FLUSH Nutrition/Malnutrition Assess - Dietary Evaluation Nutrition/Malnutrition Findings: Nutrition Notes Start: 01/10/22 14:45 Freq: Status: Active Protocol: Document 01/10/22 14:45 TIMA (Rec: 01/10/22 14:53 TIMA [id number]) Nutrition Notes Need for Assessment generated from: MD Order,Education Initial or Follow up Brief Note Current Diagnosis COPD,Hypertension,Respiratory Failure Other Pertinent Diagnosis Pneumonia, Hypotension, Seizure, Schizophrenia. Current Diet NPO (since 01/10 03:26). Height 5 ft 6 in Weight 75.977 kg [place] Body Weight (kg) 59.09 BMI 27.0 Weight change and time frame None provided at admission. Weight Status Overweight Subjective/Other Information RD consult for nutrition education assessment. Pt currently on NPO. Pt is on NIV/Bi-PaP+, O2 saturation @ 95%, according to Physical Assessment History notes. Pt has missing teeth, according to Physical Assessment History notes. Pt still in critical condition , not a candidate for Nutrition Education at the time, will assess feasibility on F/U. Percent of energy/protein needs met: Pt currently on NPO. Nutrition Intervention Follow-Up By: 07/27/22 Additional Comments Nutrition education will be provided at F/U, if feasible. Continue monitoring food tolerance, %PO intake of meals , and BM.
--- NOTE | 2022-01-10 10:31 | Consultation ---
History of Present Illness Consult date: 01/10/22 Requesting physician: ANJALI AGUERO Reason for consult: other (DKA) History of present illness: This is a 56-year-old female with know past medical history of COPD on going tobacco use, chronic respiratory failure, O2 dependent at home, seizure disorder, and schizophrenia admitted for acute on chronic respiratory failure and COPD exacerbation Required continuous Bipap but currently on oxygen at 3L via [place] Friend is visiting at the bedside Patient seen and examined Past History Past Medical History: COPD Past Surgical History: No surgical history Social history: no significant social history Family history: no significant family history Medications and Allergies Allergies Allergy/AdvReac Type Severity Reaction Status Date / Time Penicillins Allergy Shortness Verified 01/09/22 22:04 of Breath Home Medications Medication Instructions Recorded Confirmed Last Taken Type Tiotropium [place] [Spiriva 2.5 gm IH DAILY 01/12/22 01/12/22 Unknown History Respimat] AtorvaSTATin [Lipitor] 20 tab PO HS #30 tab 01/13/22 Unknown Rx Benztropine [Cogentin] 2 mg PO BID #60 tab 01/13/22 Unknown Rx Divalproex ER [Depakote ER] 500 mg PO BID #60 tab 01/13/22 Unknown Rx Montelukast [Singulair] 10 mg PO DAILY #60 tab 01/13/22 Unknown Rx Nicotine [Habitrol] 7 mg TD DAILY #30 patch 01/13/22 Unknown Rx QUEtiapine [SEROquel] 200 mg PO HS #30 tab 01/13/22 Unknown Rx Tiotropium [place] [Spiriva 2.5 gm IH DAILY 30 Days 01/13/22 Unknown Rx Respimat] Tiotropium [Spiriva] 1 puff IH Q24HRT cap 01/13/22 Unknown Rx Tiotropium [Spiriva] 2.5 mcg INHALATION PRN 30 Days cap 01/13/22 Unknown Rx clonazePAM [Klonopin] 1 mg PO BID #60 tab 01/13/22 Unknown Rx levETIRAcetam [Keppra TAB] 500 mg PO BID #60 tab 01/13/22 Unknown Rx Active Meds: Active Medications Acetaminophen (Acetaminophen 325 Mg Tab) 650 mg PO Q6H PRN PRN Reason: Pain MILD(1-3)/Fever >100.5/CORTES Albuterol (Albuterol 2.5 Mg/3 Ml Nebu) 2.5 mg IH Q3HRT PRN PRN Reason: Shortness Of Breath Albuterol/Ipratropium (Ipratropium/Albuterol Sulfate 3 Ml Ampul.Neb) 1 ampul IH Q4HRT [facility] Last Admin: 01/10/22 08:48 Dose: 1 ampul Famotidine (Famotidine 20 Mg/2 Ml Inj) 20 mg IV DAILY [facility] Heparin Sodium (Porcine) (Heparin 5,000 Unit/1 Ml Vial) 5,000 unit SUB-Q Q8HR [facility] Sodium Chloride (Nacl 0.9% 1000 Ml) 1,000 mls @ 100 mls/hr IV DIRECT [facility] Stop: 01/10/22 13:59 Levofloxacin/Dextrose (Levaquin 750mg/150ml) 750 mg in 150 mls @ 100 mls/hr IV Q48HR [facility]; Protocol Magnesium Hydroxide (Magnesium Hydroxide (Mom) Oral Liqd Udc) 30 ml PO Q4H PRN PRN Reason: Constipation Methylprednisolone Sodium Succinate (Methylprednisolone Sod Succinate 40 Mg/1 Ml Inj) 40 mg IV Q8HR [facility] Morphine Sulfate (Morphine 2 Mg/1 Ml Inj) 2 mg IV Q4H PRN PRN Reason: Pain, Moderate (4-6) Morphine Sulfate (Morphine 4 Mg/1 Ml Inj) 4 mg IV Q4H PRN PRN Reason: Pain , Severe (7-10) Ondansetron HCl (Ondansetron 4 Mg/2 Ml Inj) 4 mg IV Q8H PRN PRN Reason: Nausea And Vomiting Sodium Chloride (Sodium Chloride 0.9% 10 Ml Flush Syringe) 10 ml IV BID [facility] Sodium Chloride (Sodium Chloride 0.9% 10 Ml Flush Syringe) 10 ml IV PRN PRN PRN Reason: LINE FLUSH Review of Systems Constitutional: no weight loss, no weight gain, no fever, no chills, no sweats Cardiovascular: no chest pain, no orthopnea, no palpitations, no rapid/irregular heart beat, no edema Respiratory: cough, shortness of breath, dyspnea on exertion, wheezing, home oxygen Gastrointestinal: no abdominal pain, no nausea, no vomiting, no diarrhea, no constipation Musculoskeletal: no neck stiffness, no neck pain, no arm numbness/tingling, no low back pain Neurological: tremors, no transient paralysis, no weakness, no parathesias, no numbness, no seizures, no syncope Physical Examination Vital signs: Vital Signs Pulse Resp Pulse Ox 118 H 30 H 94 01/09/22 20:41 01/09/22 20:41 01/09/22 20:41 Vitals reviewed General appearance: Present: no acute distress, well-nourished, obese - EENT Eyes: Present: PERRL, EOM intact ENT: hearing intact - Neck Neck: Present: normal ROM - Respiratory Respiratory effort: normal Respiratory: bilateral: wheezing - Cardiovascular Rhythm: regular Heart Sounds: Present: S1 & S2 - Extremities Extremities: no ischemia, pulses intact, pulses symmetrical Peripheral Pulses: within normal limits - Abdominal General gastrointestinal: soft, non-distended, normal bowel sounds - Integumentary Integumentary: Present: warm, dry - Psychiatric Psychiatric: appropriate mood/affect, cooperative, - Neurologic Neurologic: moves all extremities, awake, alert, possible tardive dyskinesia Results - Laboratory Findings CBC and BMP: 01/12/22 05:08 01/12/22 05:08 ABG ABG pH 7.319 pH Units (7.350-7.450) L 01/09/22 22:00 ABG pCO2 49.3 mm Hg 01/09/22 22:00 ABG pO2 166.2 mm Hg (80.0-90.0) H 01/09/22 22:00 ABG O2 Saturation 98.9 % (95.0-99.0) 01/09/22 22:00 PT/INR, D-dimer D-Dimer 561.38 ng/mlDDU (0-234) H 01/09/22 21:26 Abnormal lab findings: Abnormal Labs 01/09/22 01/09/22 01/09/22 21:26 21:26 21:26 Hct 43.3 H MCV 109 H MCH 36 H RDW 13.1 L Plt Count 103 L D-Dimer 561.38 H ABG pH ABG pO2 Sodium 135 L Chloride 96.9 L BUN 22 H Creatinine 1.5 H Magnesium 2.50 H AST 71 H 01/09/22 22:00 Hct MCV MCH RDW Plt Count D-Dimer ABG pH 7.319 L ABG pO2 166.2 H Sodium Chloride BUN Creatinine Magnesium AST - Diagnostic Findings Chest x-ray: image reviewed CT scan - chest: image reviewed Additional studies: CXR reveals nonspecific bibasilar opacities which could represent pneumonia or atelectasis. CTA chest shows no evidence of pulmonary embolism. There is minimal tree-in-bud attenuation right upper lobe compatible with reactive or inflammatory airway disease. Assessment and Plan Acute on Chronic Hypoxemic Respiratory Failure COPD Exacerbation Possible Pneumonia O2 Dependent at home Hypotension Hypovolemia vs Sepsis Possible Pneumonia R/o Sepsis Acute Kidney Injury(RICHI) most likely ATN Acute Metabolic Encephalopathy Possible Tardive Dyskinesia H/o Seizure Disorder and Schizophrenia Thrombocytopenia(POA) Nicotine Dependence-Current Smoker - Titrate supplemental oxygen to SpO2 88-90% -Bronchodilators (QUANG & LABA) with pulm hygiene per RT - Systemic steroids with slow taper -Empiric antibiotics for sever AE-COPD with inflammatory changes on imaging - BIPAP qhs and prn - avoid nephrotoxins, renally dose all medications - PT/OT as tolerated -accuchecks with glycemic control per SSI for target blood glucose < 180 mg/dL , while on systemic steroids - tobacco abstinence strongly counseled at the bedside -VTE prophylaxis - SCDs, monitor platelet counts closely - Flu & pneumovax per protocol - Pulmonary out patient follow up for PFTs and optimization of respiratory status - continue other care per attending / other consultants
[2022-01-10] MEDS: FAMOTIDINE 20 MG/2 ML INJ IV SCH (10:55)
[2022-01-10] MEDS: methylPREDNISolone Sod Succinate 40 MG/1 ML INJ IV SCH ×3 (15:16→20:59)
[2022-01-10] MEDS ORDERED: NICOTINE 21 MG/24 HR PATCH TD SCH (18:00)
[2022-01-10 20:45] LABS: Creatinine,Urine 65.3 mg/dL (0.1-20.0)
[2022-01-10] MEDS: DIVALPROEX ER 500 MG TAB PO SCH (20:59)
[2022-01-10] MEDS: BENZTROPINE 2 MG TAB PO SCH (21:00)
[2022-01-10] MEDS: levETIRAcetam 500 MG TAB PO SCH (21:00)
[2022-01-10] MEDS ORDERED: QUEtiapine 200 MG TAB PO SCH (22:00)
[2022-01-11] MEDS: IPRATROPIUM/ALBUTEROL SULFATE 3 ML AMPUL.NEB IH SCH ×6 (00:36→19:48)
[2022-01-11] MEDS ORDERED: SODIUM CHLORIDE 0.9% 250ML 250 ML IV ONE (01:06)
[2022-01-11] MEDS ORDERED: SODIUM CHLORIDE 0.9% 1000 ML 1,000 ML IV SCH (01:15)
[2022-01-11 05:06] LABS: Basophils % (Auto) 0.1 % (0.0-1.8); Hematocrit 36.9 % (30.3-42.9); Hemoglobin 12.5 gm/dl (10.1-14.3); Lymphocytes # (Auto) 0.7 K/mm3 (1.2-5.4); Lymphocytes % (Auto) 11.7 % (13.4-35.0); Mean Corpuscular HGB Conc 34 % (30-34); Mean Corpuscular Volume 108 fl (79-97); Monocytes # (Auto) 0.3 K/mm3 (0.0-0.8); Monocytes % (Auto) 5.8 % (0.0-7.3); Red Blood Count 3.41 M/mm3 (3.65-5.03); Red Cell Distribution Width 12.7 % (13.2-15.2)
[2022-01-11 05:08] LABS: Platelet Count 89 K/mm3 (140-440)
[2022-01-11 05:23] LABS: BUN/Creatinine Ratio 19; Blood Urea Nitrogen 17 mg/dL (7-17); Calcium 7.9 mg/dL (8.4-10.2); Hemolysis Index 6
[2022-01-11] MEDS: methylPREDNISolone Sod Succinate 40 MG/1 ML INJ IV SCH ×3 (05:40→22:09)
[2022-01-11] MEDS: HEPARIN 5,000 UNIT/1 ML VIAL SUB-Q SCH ×3 (05:40→22:12)
--- NOTE | 2022-01-11 10:11 | Progress Note ---
Assessment and Plan Acute on Chronic Hypoxemic Respiratory Failure COPD Exacerbation Possible Pneumonia O2 Dependent at home Current Smoker Hypotension Hypovolemia vs Sepsis Possible Pneumonia R/o Sepsis Acute Kidney Injury(RICHI) most likely ATN Acute Metabolic Encephalopathy Possible Tardive Dyskinesia H/o Seizure Disorder and Schizophrenia Thrombocytopenia(POA) Nicotine Dependence - continue to wean supplemental oxygen to keep O2 sats > 90% - continue bronchodilators (QUANG & LABA) with pulm hygiene per RT - continue systemic steroids with slow taper - continue inhaled corticosteroids - avoid nephrotoxins, renally dose all medications - mobility protocols to prevent pressure ulcers - PT/OT as tolerated - Wound care per RN/WCT - continue accuchecks with glycemic control per SSI for target blood glucose < 180 mg/dL - tobacco abstinence strongly counseled at the bedside - home oxygen evaluation at discharge - GI & VTE prophylaxis - Flu & pneumovax per protocol - Pulmonary out patient follow up for PFTs and optimization of respiratory status - continue other care per attending / other consultants - prn analgesia per pain score ... re-evaluate in am & prn Subjective Date of service: 01/11/22 Principal diagnosis: Acute on Chronic Hypoxemic Resp Failure; AE-COPD; RICHI; Thrombocytopenia Interval history: Patient is seen today for: Acute on Chronic Hypoxemic Respiratory Failure; AE-COPD; Possible Pneumonia; Hypovolemia vs Sepsis; RICHI; Possible Tardive Dyskinesia; H/o Seizure Disorder and Schizophrenia; Thrombocytopenia(POA) Seen and examined at bedside; 24hour events reviewed; nursing and respiratory care staff consulted; no adverse overnight events reported to me; resting in bed; feels a little better; remains on supplemental oxygen but close to home baseline; denies acute chest pain or palpitations; afebrile Objective Vital Signs - 12hr 01/10/22 01/10/22 01/10/22 22:30 23:00 23:19 Temperature Pulse Rate 111 H 110 H 109 H Pulse Rate [ Anterior] Pulse Rate [ From Monitor] Pulse Rate [ Throughout] Respiratory 32 H 41 H 36 H Rate Respiratory Rate [Anterior] Respiratory Rate [ Throughout] Blood Pressure 109/52 100/49 100/49 O2 Sat by Pulse 93 95 93 Oximetry 01/10/22 01/10/22 01/10/22 23:23 23:30 23:58 Temperature 97.9 F Pulse Rate 108 H 108 H Pulse Rate [ Anterior] Pulse Rate [ From Monitor] Pulse Rate [ Throughout] Respiratory 40 H Rate Respiratory Rate [Anterior] Respiratory Rate [ Throughout] Blood Pressure 106/49 O2 Sat by Pulse 95 Oximetry 01/11/22 01/11/22 01/11/22 00:00 00:30 00:42 Temperature Pulse Rate 105 H 100 H Pulse Rate [ 84 Anterior] Pulse Rate [ 100 H From Monitor] Pulse Rate [ 90 Throughout] Respiratory 39 H 34 H Rate Respiratory 22 Rate [Anterior] Respiratory 24 Rate [ Throughout] Blood Pressure 108/45 92/45 O2 Sat by Pulse 90 90 Oximetry 01/11/22 01/11/22 01/11/22 00:43 01:00 01:31 Temperature Pulse Rate 105 H 93 H 96 H Pulse Rate [ Anterior] Pulse Rate [ From Monitor] Pulse Rate [ Throughout] Respiratory 24 31 H 31 H Rate Respiratory Rate [Anterior] Respiratory Rate [ Throughout] Blood Pressure 108/45 90/43 90/43 O2 Sat by Pulse 93 97 96 Oximetry 01/11/22 01/11/22 01/11/22 02:00 02:30 03:00 Temperature Pulse Rate 86 91 H 92 H Pulse Rate [ Anterior] Pulse Rate [ From Monitor] Pulse Rate [ Throughout] Respiratory 14 21 24 Rate Respiratory Rate [Anterior] Respiratory Rate [ Throughout] Blood Pressure 107/55 99/49 99/49 O2 Sat by Pulse 99 92 93 Oximetry 01/11/22 01/11/22 01/11/22 03:31 04:00 04:15 Temperature 97.8 F Pulse Rate 103 H 91 H Pulse Rate [ 80 Anterior] Pulse Rate [ 93 H From Monitor] Pulse Rate [ 86 Throughout] Respiratory 27 H 25 H Rate Respiratory 20 Rate [Anterior] Respiratory 22 Rate [ Throughout] Blood Pressure 93/52 102/51 O2 Sat by Pulse 97 96 Oximetry 01/11/22 01/11/22 01/11/22 04:30 04:52 05:00 Temperature Pulse Rate 90 93 H 90 Pulse Rate [ Anterior] Pulse Rate [ From Monitor] Pulse Rate [ Throughout] Respiratory 26 H 26 H 26 H Rate Respiratory Rate [Anterior] Respiratory Rate [ Throughout] Blood Pressure 101/55 102/51 99/52 O2 Sat by Pulse 97 96 96 Oximetry 01/11/22 01/11/22 01/11/22 05:30 06:00 07:08 Temperature 99.2 F Pulse Rate 88 90 Pulse Rate [ Anterior] Pulse Rate [ From Monitor] Pulse Rate [ Throughout] Respiratory 29 H 29 H Rate Respiratory Rate [Anterior] Respiratory Rate [ Throughout] Blood Pressure 97/46 97/50 O2 Sat by Pulse 96 96 Oximetry 01/11/22 01/11/22 01/11/22 08:00 08:04 08:18 Temperature Pulse Rate 85 Pulse Rate [ 89 Anterior] Pulse Rate [ From Monitor] Pulse Rate [ Throughout] Respiratory 25 H Rate Respiratory 18 Rate [Anterior] Respiratory Rate [ Throughout] Blood Pressure 100/54 O2 Sat by Pulse 97 99 Oximetry Constitutional: no acute distress Eyes: non-icteric ENT: oropharynx moist Neck: supple, no lymphadenopathy, no JVD Effort: mildly labored Ascultation: Bilateral: diminished breath sounds, wheezes (faint expiratory), other (prolonged expiratory phase) Percussion: Bilateral: not dull Cardiovascular: regular rate and rhythm Gastrointestinal: normoactive bowel sounds, soft, non-tender, non-distended Integumentary: normal Extremities: no cyanosis, no edema, pink and warm, pulses normal Neurologic: normal mental status, non-focal exam (grossly), pupils equal and round, motor strength normal and, other (L>R upper extremity / facial tremors (chronic)) Psychiatric: mood appropriate, affect normal CBC and BMP: 01/11/22 04:21 01/11/22 04:21 ABG, PT/INR, D-dimer: ABG ABG pH 7.319 pH Units (7.350-7.450) L 01/09/22 22:00 ABG pCO2 49.3 mm Hg 01/09/22 22:00 ABG pO2 166.2 mm Hg (80.0-90.0) H 01/09/22 22:00 ABG O2 Saturation 98.9 % (95.0-99.0) 01/09/22 22:00 PT/INR, D-dimer D-Dimer 561.38 ng/mlDDU (0-234) H 01/09/22 21:26 Abnormal lab findings: Abnormal Labs 01/09/22 01/09/22 01/09/22 21:26 21:26 21:26 RBC Hct 43.3 H MCV 109 H MCH 36 H RDW 13.1 L Plt Count 103 L Lymph % (Auto) Lymph # (Auto) Seg Neutrophils % D-Dimer 561.38 H ABG pH ABG pO2 Sodium 135 L Chloride 96.9 L BUN 22 H Creatinine 1.5 H Glucose POC Glucose Calcium Magnesium 2.50 H AST 71 H C-Reactive Protein Urine Creatinine 01/09/22 01/10/22 01/10/22 22:00 09:27 10:54 RBC Hct MCV MCH RDW Plt Count Lymph % (Auto) Lymph # (Auto) Seg Neutrophils % D-Dimer ABG pH 7.319 L ABG pO2 166.2 H Sodium Chloride BUN Creatinine Glucose POC Glucose 118 H Calcium Magnesium AST C-Reactive Protein 6.80 H Urine Creatinine 01/10/22 01/11/22 01/11/22 19:50 04:21 04:21 RBC 3.41 L Hct MCV 108 H MCH 37 H RDW 12.7 L Plt Count 89 L Lymph % (Auto) 11.7 L Lymph # (Auto) 0.7 L Seg Neutrophils % 82.4 H D-Dimer ABG pH ABG pO2 Sodium Chloride BUN Creatinine Glucose 125 H POC Glucose Calcium 7.9 L Magnesium AST C-Reactive Protein Urine Creatinine 65.3 H Chest x-ray: image reviewed Allied health notes reviewed: nursing
[2022-01-11] MEDS: levETIRAcetam 500 MG TAB PO SCH ×2 (10:15→22:10)
[2022-01-11] MEDS: DIVALPROEX ER 500 MG TAB PO SCH ×2 (10:15→22:09)
[2022-01-11] MEDS: FAMOTIDINE 20 MG/2 ML INJ IV SCH (10:15)
[2022-01-11] MEDS: BENZTROPINE 2 MG TAB PO SCH ×2 (10:15→22:08)
[2022-01-11] MEDS: MONTELUKAST 10 MG TAB PO SCH (10:15)
--- NOTE | 2022-01-11 10:56 | Progress Note ---
<JOE GARRIDO - Last Filed: 01/11/22 17:03> Assessment and Plan Assessment and plan: This is a 56-year-old female with know past medical history of COPD, chronic respiratory failure, O2 dependent at home, seizure disorder, and schizophrenia admitted for acute on chronic respiratory failure and COPD exacerbation Hospital Course to Date: 01/10: Remains on continuous Bipap. BP remains bordeline this am. Continue IV steroids, current empric IV abx, and continuous IVF X1bag. Cultures, procal and CRP pending. Continue O2 supplementation, wean O2 supplementation once more awake. Resume home meds once list is available. 01/11: Stable on home O2 requirement. Hypotensive overnight, additional IVF given, VSS this am. Continue IV steroids for now. Procal is pending, consider D/C IV Abx if procal is normal. CCM is also following. Patient is stable for transfer to Telemetry. Assessment and Plan #Acute on Chronic Respiratory Failure #COPD Exacerbation #Possible Pneumonia #O2 Dependent at home #Current Smoker - Presented with SOB and hypoxia requiring continuous Bipap - CXR reveals nonspecific bibasilar opacities which could represent pneumonia or atelectasis. - CTA chest shows no evidence of pulmonary embolism. There is minimal tree-in-bud attenuation right upper lobe compatible with reactive or inflammatory airway disease. - Continue IV steroids, Nebx treatment, and current empiric IV Abx for now - Continue O2 supplementation and wean down to home O2 at 2L NC as tolerated - Continue SPO2 monitoring for SPO2 goal above 92% - CCM is also following #Hypotension #Hypovolemia vs Sepsis - Presented with low grade fever, hypotension, and tachycardia - BP and tachycardia improved post IVF hydration - BP stable this am - Continue rehydration with cont. IVF - Continue blood pressure monitor per protocol - Maintain MAP above 65 #Possible Pneumonia #R/o Sepsis - Presented with low grade fever, hypotension, and tachycardia - CXR reveals nonspecific bibasilar opacities which could represent pneumonia or atelectasis. - CTA chest shows no evidence of pulmonary embolism. There is minimal tr ee-in-bud attenuation right upper lobe compatible with reactive or inflammatory airway disease. - Blood cultures with NGTD, procal pending - Continue current empiric IV Abx for now. Consider D/C IV Abx if procal is normal - F/U on cultures - Daily CBC monitor - Consider ID consult if febrile or/and if leukocytosis occur #Acute Kidney Injury(RICHI) most likely ATN - probably due to hypoperfusion/hypotension - Baseline renal function is unknown, Scr normalized post IVF hydration - Continue rehydration with cont. IVF - Strict intake and output - Avoid nephrotoxic medications; Renally dose medications - Monitor and replace electrolytes as needed #Acute Metabolic Encephalopathy #Tardive Dyskinesia #H/o Seizure Disorder and Schizophrenia - Presented with AMS, probably due hypercapnia vs infectious process - On Continue Bipap and Iv Abx, mentation improved this am - CT head w/o showed no acute abnormalities - Tardives Dyskinesia noted. Per patient's daughter this is not new, patient has been evaluated by a Neurologist and it was determined that its probably side effects fro psych meds. Patient is on Congentin - Resume home meds once list available - Avoid benzodiazepine to reduce the possibility of delirium - PRN Analgesia for pain control - Maintenance of sleep-wake cycle #Thrombocytopenia(POA) - Presented with low plt - No s/s of any active bleeding, H&H stable - On Heparin SubQ - Continue to trend CBC #Nicotine Dependence - Per patient's family, patient smoke close to a pack of cigarettes a day. - Smoking cessation education provided to patient and patient's daughter at the bedside. They verbalized understanding and agreed with the info provided - Nicotine patch ordered #GI/DVT Prophylaxis - PPI- Pepcid - Heparin SubQ - SCDs to bilateral lower extremities while in bed #Advance Care Planning - Disease education data, care plan, diagnoses, and prognosis were discussed with patient and patient's daughter at the bedside. Patient is a FULL code. Patient and patient's daughter acknowledged understanding and agreement with current care plan. The high probability of a clinically significant, sudden or life threatening deterioration of the [multiple] system(s) required my full and direct attention, intervention and personal management. The aggregate critical care time was [60] minutes. This time is in addition to time spent performing reported procedures but includes the following: [x] Data Review and interpretation [x] Patient assessment and monitoring of vital signs [x] Documentation [x] Medication orders and management Disposition Plan: ICU Total Time Spent with Patient (Minutes): 60 History Interval history: Patient seen and examined at the bedside. Remains stable. Back down to home O2 requirement at 2L, tolerating Bipap at night. Hypotensive overnight s/p 250ml bolus, VSS. Hospitalist Physical - Physical exam Narrative exam: General appearance: Present: no acute distress, well-nourished, obese - EENT Eyes: Present: PERRL, EOM intact ENT: hearing intact - Neck Neck: Present: normal ROM - Respiratory Respiratory effort: normal Respiratory: bilateral: wheezing - Cardiovascular Rhythm: regular Heart Sounds: Present: S1 & S2 - Extremities Extremities: no ischemia, pulses intact, pulses symmetrical Peripheral Pulses: within normal limits - Abdominal General gastrointestinal: soft, non-distended, normal bowel sounds - Integumentary Integumentary: Present: warm, dry - Psychiatric Psychiatric: appropriate mood/affect, cooperative - Neurologic Neurologic: moves all extremities, other(Tardive Dyskinesia noted) - Allied Health Allied health notes reviewed: nursing, Case management - Constitutional Vitals: Temp Pulse Resp BP Pulse Ox 99.2 F 85 25 H 100/54 99 01/11/22 07:08 01/11/22 08:18 01/11/22 08:18 01/11/22 08:18 01/11/22 08:18 Results - Labs CBC & Chem 7: 01/11/22 04:21 01/11/22 04:21 Labs: Laboratory Last Values WBC 5.6 K/mm3 (4.5-11.0) 01/11/22 04:21 RBC 3.41 M/mm3 (3.65-5.03) L 01/11/22 04:21 Hgb 12.5 gm/dl (10.1-14.3) 01/11/22 04:21 Hct 36.9 % (30.3-42.9) D 01/11/22 04:21 MCV 108 fl (79-97) H 01/11/22 04:21 MCH 37 pg (28-32) H 01/11/22 04:21 MCHC 34 % (30-34) 01/11/22 04:21 RDW 12.7 % (13.2-15.2) L 01/11/22 04:21 Plt Count 89 K/mm3 (140-440) L 01/11/22 04:21 Lymph % (Auto) 11.7 % (13.4-35.0) L 01/11/22 04:21 [place] % (Auto) 5.8 % (0.0-7.3) 01/11/22 04:21 Eos % (Auto) 0.0 % (0.0-4.3) 01/11/22 04:21 Baso % (Auto) 0.1 % (0.0-1.8) 01/11/22 04:21 Lymph # (Auto) 0.7 K/mm3 (1.2-5.4) L 01/11/22 04:21 [place] # (Auto) 0.3 K/mm3 (0.0-0.8) 01/11/22 04:21 Eos # (Auto) 0.0 K/mm3 (0.0-0.4) 01/11/22 04:21 Baso # (Auto) 0.0 K/mm3 (0.0-0.1) 01/11/22 04:21 Seg Neutrophils % 82.4 % (40.0-70.0) H 01/11/22 04:21 Seg Neutrophils # 4.6 K/mm3 (1.8-7.7) 01/11/22 04:21 D-Dimer 561.38 ng/mlDDU (0-234) H 01/09/22 21:26 ABG pH 7.319 pH Units (7.350-7.450) L 01/09/22 22:00 ABG pCO2 49.3 mm Hg 01/09/22 22:00 ABG pO2 166.2 mm Hg (80.0-90.0) H 01/09/22 22:00 ABG HCO3 24.8 mmol/L (20.0-26.0) 01/09/22 22:00 ABG O2 Saturation 98.9 % (95.0-99.0) 01/09/22 22:00 ABG O2 Content 19.3 (0.0-44) 01/09/22 22:00 ABG Base Excess -1.8 mmol/L (-2.0-3.0) 01/09/22 22:00 ABG Hemoglobin 13.9 gm/dl (12.0-16.0) 01/09/22 22:00 ABG Carboxyhemoglobin 1.2 % (0.0-5.0) 01/09/22 22:00 ABG Methemoglobin 0.6 % (0.0-1.5) 01/09/22 22:00 Oxyhemoglobin 97.1 % (95.0-99.0) 01/09/22 22:00 FiO2 70 % 01/09/22 22:00 Sodium 140 mmol/L (137-145) 01/11/22 04:21 Potassium 4.6 mmol/L (3.6-5.0) 01/11/22 04:21 Chloride 104.6 mmol/L (98-107) 01/11/22 04:21 Carbon Dioxide 28 mmol/L (22-30) 01/11/22 04:21 Anion Gap 12 mmol/L 01/11/22 04:21 BUN 17 mg/dL (7-17) 01/11/22 04:21 Creatinine 0.9 mg/dL (0.6-1.2) 01/11/22 04:21 Estimated GFR > 60 ml/min 01/11/22 04:21 BUN/Creatinine Ratio 19 % 01/11/22 04:21 Glucose 125 mg/dL (65-100) H 01/11/22 04:21 POC Glucose 118 mg/dL (70-105) H 01/10/22 10:54 Lactic Acid 0.70 mmol/L (0.7-2.0) 01/10/22 03:21 Calcium 7.9 mg/dL (8.4-10.2) L 01/11/22 04:21 Magnesium 2.50 mg/dL (1.7-2.3) H 01/09/22 21:26 Total Bilirubin 0.20 mg/dL (0.1-1.2) 01/09/22 21:26 AST 71 units/L (5-40) H 01/09/22 21:26 ALT 15 units/L (7-56) 01/09/22 21:26 Alkaline Phosphatase 77 units/L (35-129) 01/09/22 21:26 Ammonia 25.0 umol/L (25-60) 01/09/22 21:33 C-Reactive Protein 6.80 mg/dL (0.00-1.30) H 01/10/22 09:27 NT-Pro-B Natriuret Pep 829.3 pg/mL (0-900) 01/09/22 21:26 Total Protein 6.5 g/dL (6.3-8.2) 01/09/22 21:26 Albumin 4.1 g/dL (3.9-5) 01/09/22 21:26 Albumin/Globulin Ratio 1.7 % 01/09/22 21:26 Urine Color Yellow (Yellow) 01/10/22 01:47 Urine Turbidity Clear (Clear) 01/10/22 01:47 Urine pH 6.0 (5.0-7.0) 01/10/22 01:47 Ur Specific [place] 1.010 (1.003-1.030) 01/10/22 01:47 Urine Protein 30 mg/dl mg/dL (Negative) 01/10/22 01:47 Urine Glucose (UA) Negative mg/dL (Negative) 01/10/22 01:47 Urine Ketones Negative mg/dL (Negative) 01/10/22 01:47 Urine Blood Negative (Negative) 01/10/22 01:47 Urine Nitrite Negative (Negative) 01/10/22 01:47 Ur Reducing Substances Not Reportable 01/10/22 01:47 Urine Bilirubin Negative (Negative) 01/10/22 01:47 Urine Ictotest Not Reportable 01/10/22 01:47 Urine Urobilinogen 0.0 mg/dL (<2.0) 01/10/22 01:47 Ur Leukocyte Esterase Negative (Negative) 01/10/22 01:47 Urine WBC (Auto) < 1.0 /HPF (0.0-6.0) 01/10/22 01:47 Urine RBC (Auto) 1.0 /HPF (0.0-6.0) 01/10/22 01:47 U Epithel Cells (Auto) 9.0 /HPF (0-13.0) 01/10/22 01:47 Urine Mucus Few /HPF 01/10/22 01:47 Urine Creatinine 65.3 mg/dL (0.1-20.0) H 01/10/22 19:50 Urine Sodium 37 mmol/L 01/10/22 19:50 Urine Opiates Screen Presumptive negative 01/10/22 01:47 Urine Methadone Screen Presumptive negative 01/10/22 01:47 Ur Barbiturates Screen Presumptive negative 01/10/22 01:47 Ur Phencyclidine Scrn Presumptive negative 01/10/22 01:47 Ur Amphetamines Screen Presumptive negative 01/10/22 01:47 U Benzodiazepines Scrn Presumptive negative 01/10/22 01:47 Urine Cocaine Screen Presumptive negative 01/10/22 01:47 U Marijuana (THC) Screen Presumptive negative 01/10/22 01:47 Drugs of Abuse Note Disclamer 01/10/22 01:47 SARS-CoV-2 (PCR) Negative (Negative) 01/09/22 21:15 Microbiology: Microbiology 01/10/22 03:21 Peripheral/Venous Blood Culture - Preliminary NO GROWTH AFTER 24 HOURS 01/10/22 03:21 Peripheral/Venous Blood Culture - Preliminary NO GROWTH AFTER 24 HOURS Lemon/IV: Voiding Method External Female Catheter Active Medications - Current Medications Current Medications: Generic Name Dose Route Start Last Admin Trade Name Freq PRN Reason Stop Dose Admin Acetaminophen 650 mg 01/10/22 04:00 Acetaminophen 325 Mg Tab PO Q6H PRN Pain MILD(1-3)/Fever >100.5/CORTES Albuterol 2.5 mg 01/10/22 05:00 Albuterol 2.5 Mg/3 Ml Nebu IH Q3HRT PRN Shortness Of Breath Albuterol/Ipratropium 1 ampul 01/10/22 04:00 01/11/22 08:06 Ipratropium/Albuterol Sulfate 3 Ml Ampul.Neb IH 1 ampul Q4HRT HAMLET Administration Atorvastatin Calcium 20 mg 01/10/22 22:00 01/10/22 21:00 Atorvastatin 20 Mg Tab PO 20 mg HS HAMLET Administration Benztropine Mesylate 2 mg 01/10/22 22:00 01/11/22 10:15 Benztropine 2 Mg Tab PO 2 mg BID HAMLET Administration Divalproex Sodium 500 mg 01/10/22 22:00 01/11/22 10:15 Divalproex Er 500 Mg Tab PO 500 mg BID HAMLET Administration Famotidine 20 mg 01/10/22 10:00 01/11/22 10:15 Famotidine 20 Mg/2 Ml Inj IV 20 mg DAILY HAMLET Administration Heparin Sodium (Porcine) 5,000 unit 01/10/22 06:00 01/11/22 05:40 Heparin 5,000 Unit/1 Ml Vial SUB-Q 5,000 unit Q8HR HAMLET Administration Levofloxacin/Dextrose 750 mg in 150 mls @ 100 mls/hr 01/12/22 10:00 Levaquin 750mg/150ml IV Q48HR HAMLET Protocol Sodium Chloride 1,000 mls @ 100 mls/hr 01/11/22 01:15 01/11/22 01:19 Nacl 0.9% 1000 Ml IV 100 mls/hr DIRECT HAMLET Administration Levetiracetam 500 mg 01/10/22 22:00 01/11/22 10:15 Levetiracetam 500 Mg Tab PO 500 mg BID HAMLET Administration Magnesium Hydroxide 30 ml 01/10/22 04:00 Magnesium Hydroxide (Mom) Oral Liqd Udc PO Q4H PRN Constipation Methylprednisolone Sodium Succinate 40 mg 01/10/22 06:00 01/11/22 05:40 Methylprednisolone Sod Succinate 40 Mg/1 Ml Inj IV 40 mg Q8HR HAMLET Administration Montelukast Sodium 10 mg 01/11/22 10:00 01/11/22 10:15 Montelukast 10 Mg Tab PO 10 mg DAILY HAMLET Administration Morphine Sulfate 2 mg 01/10/22 04:00 Morphine 2 Mg/1 Ml Inj IV Q4H PRN Pain, Moderate (4-6) Morphine Sulfate 4 mg 01/10/22 04:00 Morphine 4 Mg/1 Ml Inj IV Q4H PRN Pain , Severe (7-10) Ondansetron HCl 4 mg 01/10/22 04:00 Ondansetron 4 Mg/2 Ml Inj IV Q8H PRN Nausea And Vomiting Quetiapine Fumarate 100 mg 01/10/22 22:00 01/10/22 21:00 Quetiapine 200 Mg Tab PO 100 mg HS HAMLET Administration Sodium Chloride 10 ml 01/10/22 10:00 01/11/22 10:14 Sodium Chloride 0.9% 10 Ml Flush Syringe IV 10 ml BID HAMLET Administration Sodium Chloride 10 ml 01/10/22 04:00 Sodium Chloride 0.9% 10 Ml Flush Syringe IV PRN PRN LINE FLUSH Nutrition/Malnutrition Assess - Dietary Evaluation Nutrition/Malnutrition Findings: Nutrition Notes Start: 01/10/22 14:45 Freq: Status: Active Protocol: Document 01/10/22 14:45 TIMA (Rec: 01/10/22 14:53 TIMA [id number]) Nutrition Notes Need for Assessment generated from: MD Order,Education Initial or Follow up Brief Note Current Diagnosis COPD,Hypertension,Respiratory Failure Other Pertinent Diagnosis Pneumonia, Hypotension, Seizure, Schizophrenia. Current Diet NPO (since 01/10 03:26). Height 5 ft 6 in Weight 75.977 kg [place] Body Weight (kg) 59.09 BMI 27.0 Weight change and time frame None provided at admission. Weight Status Overweight Subjective/Other Information RD consult for nutrition education assessment. Pt currently on NPO. Pt is on NIV/Bi-PaP+, O2 saturation @ 95%, according to Physical Assessment History notes. Pt has missing teeth, according to Physical Assessment History notes. Pt still in critical condition , not a candidate for Nutrition Education at the time, will assess feasibility on F/U. Percent of energy/protein needs met: Pt currently on NPO. Nutrition Intervention Follow-Up By: 01/17/22 Additional Comments Nutrition education will be provided at F/U, if feasible. Continue monitoring food tolerance, %PO intake of meals , and BM. <TABITHA FLORIAN - Last Filed: 01/12/22 07:37> Assessment and Plan Assessment and plan: I saw and evaluated the patient. I agree with the findings and the plan of care as documented in the Nurse Practitioner's~note, with the following corrections and additions. Hospitalist Physical - Constitutional Vitals: Temp Pulse Resp BP Pulse Ox 97.5 F L 74 18 99/61 97 01/12/22 05:50 01/12/22 05:50 01/12/22 05:50 01/12/22 05:50 01/12/22 05:50 Results - Labs CBC & Chem 7: 01/12/22 05:08 01/12/22 05:08 Labs: Laboratory Last Values WBC 5.0 K/mm3 (4.5-11.0) 01/12/22 05:08 RBC 3.45 M/mm3 (3.65-5.03) L 01/12/22 05:08 Hgb 12.3 gm/dl (10.1-14.3) 01/12/22 05:08 Hct 37.8 % (30.3-42.9) 01/12/22 05:08 MCV 110 fl (79-97) H 01/12/22 05:08 MCH 36 pg (28-32) H 01/12/22 05:08 MCHC 33 % (30-34) 01/12/22 05:08 RDW 12.7 % (13.2-15.2) L 01/12/22 05:08 Plt Count 82 K/mm3 (140-440) L 01/12/22 05:08 Lymph % (Auto) 11.7 % (13.4-35.0) L 01/11/22 04:21 [place] % (Auto) 5.8 % (0.0-7.3) 01/11/22 04:21 Eos % (Auto) 0.0 % (0.0-4.3) 01/11/22 04:21 Baso % (Auto) 0.1 % (0.0-1.8) 01/11/22 04:21 Lymph # (Auto) 0.7 K/mm3 (1.2-5.4) L 01/11/22 04:21 [place] # (Auto) 0.3 K/mm3 (0.0-0.8) 01/11/22 04:21 Eos # (Auto) 0.0 K/mm3 (0.0-0.4) 01/11/22 04:21 Baso # (Auto) 0.0 K/mm3 (0.0-0.1) 01/11/22 04:21 Seg Neutrophils % 82.4 % (40.0-70.0) H 01/11/22 04:21 Seg Neutrophils # 4.6 K/mm3 (1.8-7.7) 01/11/22 04:21 D-Dimer 561.38 ng/mlDDU (0-234) H 01/09/22 21:26 ABG pH 7.319 pH Units (7.350-7.450) L 01/09/22 22:00 ABG pCO2 49.3 mm Hg 01/09/22 22:00 ABG pO2 166.2 mm Hg (80.0-90.0) H 01/09/22 22:00 ABG HCO3 24.8 mmol/L (20.0-26.0) 01/09/22 22:00 ABG O2 Saturation 98.9 % (95.0-99.0) 01/09/22 22:00 ABG O2 Content 19.3 (0.0-44) 01/09/22 22:00 ABG Base Excess -1.8 mmol/L (-2.0-3.0) 01/09/22 22:00 ABG Hemoglobin 13.9 gm/dl (12.0-16.0) 01/09/22 22:00 ABG Carboxyhemoglobin 1.2 % (0.0-5.0) 01/09/22 22:00 ABG Methemoglobin 0.6 % (0.0-1.5) 01/09/22 22:00 Oxyhemoglobin 97.1 % (95.0-99.0) 01/09/22 22:00 FiO2 70 % 01/09/22 22:00 Sodium 143 mmol/L (137-145) 01/12/22 05:08 Potassium 4.7 mmol/L (3.6-5.0) 01/12/22 05:08 Chloride 106.0 mmol/L (98-107) 01/12/22 05:08 Carbon Dioxide 31 mmol/L (22-30) H 01/12/22 05:08 Anion Gap 11 mmol/L 01/12/22 05:08 BUN 21 mg/dL (7-17) H 01/12/22 05:08 Creatinine 0.9 mg/dL (0.6-1.2) 01/12/22 05:08 Estimated GFR > 60 ml/min 01/12/22 05:08 BUN/Creatinine Ratio 23 % 01/12/22 05:08 Glucose 122 mg/dL (65-100) H 01/12/22 05:08 POC Glucose 118 mg/dL (70-105) H 01/10/22 10:54 Lactic Acid 0.70 mmol/L (0.7-2.0) 01/10/22 03:21 Calcium 8.1 mg/dL (8.4-10.2) L 01/12/22 05:08 Magnesium 2.50 mg/dL (1.7-2.3) H 01/09/22 21:26 Total Bilirubin 0.20 mg/dL (0.1-1.2) 01/09/22 21:26 AST 71 units/L (5-40) H 01/09/22 21:26 ALT 15 units/L (7-56) 01/09/22 21:26 Alkaline Phosphatase 77 units/L (35-129) 01/09/22 21:26 Ammonia 25.0 umol/L (25-60) 01/09/22 21:33 C-Reactive Protein 6.80 mg/dL (0.00-1.30) H 01/10/22 09:27 NT-Pro-B Natriuret Pep 829.3 pg/mL (0-900) 01/09/22 21:26 Total Protein 6.5 g/dL (6.3-8.2) 01/09/22 21:26 Albumin 4.1 g/dL (3.9-5) 01/09/22 21:26 Albumin/Globulin Ratio 1.7 % 01/09/22 21:26 Procalcitonin 0.56 ng/mL (<0.15) 01/09/22 21:26 Urine Color Yellow (Yellow) 01/10/22 01:47 Urine Turbidity Clear (Clear) 01/10/22 01:47 Urine pH 6.0 (5.0-7.0) 01/10/22 01:47 Ur Specific [place] 1.010 (1.003-1.030) 01/10/22 01:47 Urine Protein 30 mg/dl mg/dL (Negative) 01/10/22 01:47 Urine Glucose (UA) Negative mg/dL (Negative) 01/10/22 01:47 Urine Ketones Negative mg/dL (Negative) 01/10/22 01:47 Urine Blood Negative (Negative) 01/10/22 01:47 Urine Nitrite Negative (Negative) 01/10/22 01:47 Ur Reducing Substances Not Reportable 01/10/22 01:47 Urine Bilirubin Negative (Negative) 01/10/22 01:47 Urine Ictotest Not Reportable 01/10/22 01:47 Urine Urobilinogen 0.0 mg/dL (<2.0) 01/10/22 01:47 Ur Leukocyte Esterase Negative (Negative) 01/10/22 01:47 Urine WBC (Auto) < 1.0 /HPF (0.0-6.0) 01/10/22 01:47 Urine RBC (Auto) 1.0 /HPF (0.0-6.0) 01/10/22 01:47 U Epithel Cells (Auto) 9.0 /HPF (0-13.0) 01/10/22 01:47 Urine Mucus Few /HPF 01/10/22 01:47 Urine Creatinine 65.3 mg/dL (0.1-20.0) H 01/10/22 19:50 Urine Sodium 37 mmol/L 01/10/22 19:50 Urine Opiates Screen Presumptive negative 01/10/22 01:47 Urine Methadone Screen Presumptive negative 01/10/22 01:47 Ur Barbiturates Screen Presumptive negative 01/10/22 01:47 Ur Phencyclidine Scrn Presumptive negative 01/10/22 01:47 Ur Amphetamines Screen Presumptive negative 01/10/22 01:47 U Benzodiazepines Scrn Presumptive negative 01/10/22 01:47 Urine Cocaine Screen Presumptive negative 01/10/22 01:47 U Marijuana (THC) Screen Presumptive negative 01/10/22 01:47 Drugs of Abuse Note Disclamer 01/10/22 01:47 SARS-CoV-2 (PCR) Negative (Negative) 01/09/22 21:15 Microbiology: Microbiology 01/10/22 03:21 Peripheral/Venous Blood Culture - Preliminary NO GROWTH AFTER 48 HOURS 01/10/22 03:21 Peripheral/Venous Blood Culture - Preliminary NO GROWTH AFTER 48 HOURS Lemon/IV: Voiding Method Toilet Active Medications - Current Medications Current Medications: Generic Name Dose Route Start Last Admin Trade Name Freq PRN Reason Stop Dose Admin Acetaminophen 650 mg 01/10/22 04:00 Acetaminophen 325 Mg Tab PO Q6H PRN Pain MILD(1-3)/Fever >100.5/CORTES Albuterol 2.5 mg 01/10/22 05:00 Albuterol 2.5 Mg/3 Ml Nebu IH Q3HRT PRN Shortness Of Breath Albuterol/Ipratropium 1 ampul 01/12/22 08:00 Ipratropium/Albuterol Sulfate 3 Ml Ampul.Neb IH TIDRT HAMLET Atorvastatin Calcium 20 mg 01/10/22 22:00 01/11/22 22:09 Atorvastatin 20 Mg Tab PO 20 mg HS HAMLET Administration Benztropine Mesylate 2 mg 01/10/22 22:00 01/11/22 22:08 Benztropine 2 Mg Tab PO 2 mg BID HAMLET Administration Divalproex Sodium 500 mg 01/10/22 22:00 01/11/22 22:09 Divalproex Er 500 Mg Tab PO 500 mg BID HAMLET Administration Famotidine 20 mg 01/10/22 10:00 01/11/22 10:15 Famotidine 20 Mg/2 Ml Inj IV 20 mg DAILY HAMLET Administration Heparin Sodium (Porcine) 5,000 unit 01/10/22 06:00 01/12/22 05:42 Heparin 5,000 Unit/1 Ml Vial SUB-Q 5,000 unit Q8HR HAMLET Administration Levofloxacin/Dextrose 750 mg in 150 mls @ 100 mls/hr 01/12/22 10:00 Levaquin 750mg/150ml IV Q48HR HAMLET Protocol Levetiracetam 500 mg 01/10/22 22:00 01/11/22 22:10 Levetiracetam 500 Mg Tab PO 500 mg BID HAMLET Administration Magnesium Hydroxide 30 ml 01/10/22 04:00 Magnesium Hydroxide (Mom) Oral Liqd Udc PO Q4H PRN Constipation Methylprednisolone Sodium Succinate 40 mg 01/10/22 06:00 01/12/22 05:42 Methylprednisolone Sod Succinate 40 Mg/1 Ml Inj IV 40 mg Q8HR HAMLET Administration Montelukast Sodium 10 mg 01/11/22 10:00 01/11/22 10:15 Montelukast 10 Mg Tab PO 10 mg DAILY HAMLET Administration Morphine Sulfate 2 mg 01/10/22 04:00 Morphine 2 Mg/1 Ml Inj IV Q4H PRN Pain, Moderate (4-6) Ondansetron HCl 4 mg 01/10/22 04:00 Ondansetron 4 Mg/2 Ml Inj IV Q8H PRN Nausea And Vomiting Quetiapine Fumarate 100 mg 01/11/22 22:00 01/11/22 22:09 Quetiapine 100 Mg Tab PO 100 mg HS HAMLET Administration Sodium Chloride 10 ml 01/10/22 10:00 01/11/22 22:09 Sodium Chloride 0.9% 10 Ml Flush Syringe IV 10 ml BID HAMLET Administration Sodium Chloride 10 ml 01/10/22 04:00 Sodium Chloride 0.9% 10 Ml Flush Syringe IV PRN PRN LINE FLUSH Nutrition/Malnutrition Assess - Dietary Evaluation Nutrition/Malnutrition Findings: Nutrition Notes Start: 01/10/22 14:45 Freq: Status: Active Protocol: Document 01/10/22 14:45 TIMA (Rec: 01/10/22 14:53 TIMA [id number]) Nutrition Notes Need for Assessment generated from: MD Order,Education Initial or Follow up Brief Note Current Diagnosis COPD,Hypertension,Respiratory Failure Other Pertinent Diagnosis Pneumonia, Hypotension, Seizure, Schizophrenia. Current Diet NPO (since 01/10 03:26). Height 5 ft 6 in Weight 75.977 kg [place] Body Weight (kg) 59.09 BMI 27.0 Weight change and time frame None provided at admission. Weight Status Overweight Subjective/Other Information RD consult for nutrition education assessment. Pt currently on NPO. Pt is on NIV/Bi-PaP+, O2 saturation @ 95%, according to Physical Assessment History notes. Pt has missing teeth, according to Physical Assessment History notes. Pt still in critical condition , not a candidate for Nutrition Education at the time, will assess feasibility on F/U. Percent of energy/protein needs met: Pt currently on NPO. Nutrition Intervention Follow-Up By: 01/17/22 Additional Comments Nutrition education will be provided at F/U, if feasible. Continue monitoring food tolerance, %PO intake of meals , and BM.
--- NOTE | 2022-01-11 13:39 | Electrocardiograph Report ---
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
[2022-01-11] MEDS: QUEtiapine 100 MG TAB PO SCH (22:09)
[2022-01-12] MEDS: HEPARIN 5,000 UNIT/1 ML VIAL SUB-Q SCH ×3 (05:42→21:46)
[2022-01-12] MEDS: methylPREDNISolone Sod Succinate 40 MG/1 ML INJ IV SCH ×3 (05:42→21:45)
[2022-01-12 05:48] LABS: Hematocrit 37.8 % (30.3-42.9); Hemoglobin 12.3 gm/dl (10.1-14.3); Mean Corpuscular HGB Conc 33 % (30-34); Mean Corpuscular Volume 110 fl (79-97); Platelet Count 82 K/mm3 (140-440); Red Blood Count 3.45 M/mm3 (3.65-5.03); Red Cell Distribution Width 12.7 % (13.2-15.2)
[2022-01-12 05:59] LABS: BUN/Creatinine Ratio 23; Blood Urea Nitrogen 21 mg/dL (7-17); Calcium 8.1 mg/dL (8.4-10.2); Hemolysis Index 4
[2022-01-12] MEDS ORDERED: IPRATROPIUM/ALBUTEROL SULFATE 3 ML AMPUL.NEB IH SCH (08:00)
[2022-01-12] MEDS: FAMOTIDINE 20 MG/2 ML INJ IV SCH (09:05)
[2022-01-12] MEDS: DIVALPROEX ER 500 MG TAB PO SCH ×2 (09:05→21:43)
[2022-01-12] MEDS: MONTELUKAST 10 MG TAB PO SCH (09:05)
[2022-01-12] MEDS: levETIRAcetam 500 MG TAB PO SCH ×2 (09:05→21:43)
[2022-01-12] MEDS: BENZTROPINE 2 MG TAB PO SCH ×2 (09:05→21:43)
[2022-01-12] MEDS: IPRATROPIUM/ALBUTEROL SULFATE 3 ML AMPUL.NEB IH SCH ×3 (09:23→21:31)
--- NOTE | 2022-01-12 10:42 | Progress Note ---
Assessment and Plan Assessment and plan: This is a 56-year-old female with know past medical history of COPD, chronic respiratory failure, O2 dependent at home, seizure disorder, and schizophrenia admitted for acute on chronic respiratory failure and COPD exacerbation Assessment and Plan #Acute on Chronic Respiratory Failure #COPD Exacerbation #Possible Pneumonia #O2 Dependent at home #Current Smoker - Presented with SOB and hypoxia requiring continuous Bipap - CXR reveals nonspecific bibasilar opacities which could represent pneumonia or atelectasis. - CTA chest shows no evidence of pulmonary embolism. There is minimal tree-in-bud attenuation right upper lobe compatible with reactive or inflamma tory airway disease. - Continue IV steroids, Nebx treatment, and current empiric IV Abx for now - Continue O2 supplementation and wean down to home O2 at 2L NC as tolerated - Continue SPO2 monitoring for SPO2 goal above 92% - CCM is also following #Sepsis - Presented with low grade fever, hypotension, and tachycardia, dx of PNA - Maintain MAP above 65 - Continue current empiric IV Abx for now. #Pneumonia - CXR reveals nonspecific bibasilar opacities which could represent pneumonia or atelectasis. - CTA chest shows no evidence of pulmonary embolism. There is minimal tree-in-bud attenuation right upper lobe compatible with reactive or inflam matory airway disease. - Blood cultures with NGTD, procal pending - Consider D/C IV Abx if procal is normal - F/U on cultures - Daily CBC monitor - Consider ID consult if febrile or/and if leukocytosis occur #Acute Kidney Injury(RICHI) most likely ATN - probably due to hypoperfusion/hypotension - Baseline renal function is unknown, Scr normalized post IVF hydration - Continue rehydration with cont. IVF - Strict intake and output - Avoid nephrotoxic medications; Renally dose medications - Monitor and replace electrolytes as needed #Toxic Metabolic Encephalopathy #Tardive Dyskinesia #H/o Seizure Disorder and Schizophrenia - Presented with AMS, probably due hypercapnia vs infectious process - On Continue Bipap and Iv Abx, mentation improved this am - CT head w/o showed no acute abnormalities - Tardive Dyskinesia noted. Per patient's daughter this is not new, patient has been evaluated by a Neurologist and it was determined that its probably side effects from psych meds. Patient is on Congentin - Resume home meds once list available - Avoid benzodiazepine to reduce the possibility of delirium - PRN Analgesia for pain control - Maintenance of sleep-wake cycle #Thrombocytopenia(POA) - Presented with low plt - No s/s of any active bleeding, H&H stable - On Heparin SubQ - Continue to trend CBC #Nicotine Dependence - Per patient's family, patient smoke close to a pack of cigarettes a day. - Smoking cessation education provided to patient and patient's daughter at the bedside. They verbalized understanding and agreed with the info provided - Nicotine patch ordered #GI/DVT Prophylaxis - PPI- Pepcid - Heparin SubQ - SCDs to bilateral lower extremities while in bed Hospital Course to Date: 01/10: Remains on continuous Bipap. BP remains bordeline this am. Continue IV steroids, current empric IV abx, and continuous IVF X1bag. Cultures, procal and CRP pending. Continue O2 supplementation, wean O2 supplementation once more lucy [place]. Resume home meds once list is available. 01/11: Stable on home O2 requirement. Hypotensive overnight, additional IVF given, VSS this am. Continue IV steroids for now. Procal is pending, consider D /C IV Abx if procal is normal. CCM is also following. Patient is stable for transfer to Telemetry. 01/12: Patient with complaints of tremors which as noted above is likely secondary to tardive dyskinesia. Continue Cogentin 2 mg p.o. twice daily. I have placed a call to her primary neurologist office for further follow-up. Awaiting return call. Continue IV antibiotics for pneumonia. Patient appears to be near her baseline respiratory status at 3 L O2. Patient is on home O2 of 2 L. PT evaluation for discharge needs History Interval history: No new issues overnight Hospitalist Physical - Constitutional Vitals: Temp Pulse Resp BP Pulse Ox 97.5 F L 92 H 20 99/61 93 01/12/22 05:50 01/12/22 08:00 01/12/22 08:00 01/12/22 05:50 01/12/22 09:30 General appearance: Present: no acute distress, well-nourished, obese - EENT Eyes: Present: PERRL, EOM intact ENT: hearing intact, clear oral mucosa, dentition normal - Neck Neck: Present: supple, normal ROM - Respiratory Respiratory effort: normal Respiratory: bilateral: CTA - Cardiovascular Rhythm: regular Heart Sounds: Present: S1 & S2. Absent: gallop, rub - Extremities Extremities: no ischemia, No edema, Full ROM - Abdominal General gastrointestinal: soft, non-tender, non-distended, normal bowel sounds - Integumentary Integumentary: Present: clear, warm, dry - Neurologic Neurologic: CNII-XII intact, moves all extremities Results - Labs CBC & Chem 7: 01/12/22 05:08 01/12/22 05:08 Labs: Laboratory Last Values WBC 5.0 K/mm3 (4.5-11.0) 01/12/22 05:08 RBC 3.45 M/mm3 (3.65-5.03) L 01/12/22 05:08 Hgb 12.3 gm/dl (10.1-14.3) 01/12/22 05:08 Hct 37.8 % (30.3-42.9) 01/12/22 05:08 MCV 110 fl (79-97) H 01/12/22 05:08 MCH 36 pg (28-32) H 01/12/22 05:08 MCHC 33 % (30-34) 01/12/22 05:08 RDW 12.7 % (13.2-15.2) L 01/12/22 05:08 Plt Count 82 K/mm3 (140-440) L 01/12/22 05:08 Lymph % (Auto) 11.7 % (13.4-35.0) L 01/11/22 04:21 [place]le % (Auto) 5.8 % (0.0-7.3) 01/11/22 04:21 Eos % (Auto) 0.0 % (0.0-4.3) 01/11/22 04:21 Baso % (Auto) 0.1 % (0.0-1.8) 01/11/22 04:21 Lymph # (Auto) 0.7 K/mm3 (1.2-5.4) L 01/11/22 04:21 Brule # (Auto) 0.3 K/mm3 (0.0-0.8) 01/11/22 04:21 Eos # (Auto) 0.0 K/mm3 (0.0-0.4) 01/11/22 04:21 Baso # (Auto) 0.0 K/mm3 (0.0-0.1) 01/11/22 04:21 Seg Neutrophils % 82.4 % (40.0-70.0) H 01/11/22 04:21 Seg Neutrophils # 4.6 K/mm3 (1.8-7.7) 01/11/22 04:21 D-Dimer 561.38 ng/mlDDU (0-234) H 01/09/22 21:26 ABG pH 7.319 pH Units (7.350-7.450) L 01/09/22 22:00 ABG pCO2 49.3 mm Hg 01/09/22 22:00 ABG pO2 166.2 mm Hg (80.0-90.0) H 01/09/22 22:00 ABG HCO3 24.8 mmol/L (20.0-26.0) 01/09/22 22:00 ABG O2 Saturation 98.9 % (95.0-99.0) 01/09/22 22:00 ABG O2 Content 19.3 (0.0-44) 01/09/22 22:00 ABG Base Excess -1.8 mmol/L (-2.0-3.0) 01/09/22 22:00 ABG Hemoglobin 13.9 gm/dl (12.0-16.0) 01/09/22 22:00 ABG Carboxyhemoglobin 1.2 % (0.0-5.0) 01/09/22 22:00 ABG Methemoglobin 0.6 % (0.0-1.5) 01/09/22 22:00 Oxyhemoglobin 97.1 % (95.0-99.0) 01/09/22 22:00 FiO2 70 % 01/09/22 22:00 Sodium 143 mmol/L (137-145) 01/12/22 05:08 Potassium 4.7 mmol/L (3.6-5.0) 01/12/22 05:08 Chloride 106.0 mmol/L (98-107) 01/12/22 05:08 Carbon Dioxide 31 mmol/L (22-30) H 01/12/22 05:08 Anion Gap 11 mmol/L 01/12/22 05:08 BUN 21 mg/dL (7-17) H 01/12/22 05:08 Creatinine 0.9 mg/dL (0.6-1.2) 01/12/22 05:08 Estimated GFR > 60 ml/min 01/12/22 05:08 BUN/Creatinine Ratio 23 % 01/12/22 05:08 Glucose 122 mg/dL (65-100) H 01/12/22 05:08 POC Glucose 118 mg/dL (70-105) H 01/10/22 10:54 Lactic Acid 0.70 mmol/L (0.7-2.0) 01/10/22 03:21 Calcium 8.1 mg/dL (8.4-10.2) L 01/12/22 05:08 Magnesium 2.50 mg/dL (1.7-2.3) H 01/09/22 21:26 Total Bilirubin 0.20 mg/dL (0.1-1.2) 01/09/22 21:26 AST 71 units/L (5-40) H 01/09/22 21:26 ALT 15 units/L (7-56) 01/09/22 21:26 Alkaline Phosphatase 77 units/L (35-129) 01/09/22 21:26 Ammonia 25.0 umol/L (25-60) 01/09/22 21:33 C-Reactive Protein 6.80 mg/dL (0.00-1.30) H 01/10/22 09:27 NT-Pro-B Natriuret Pep 829.3 pg/mL (0-900) 01/09/22 21:26 Total Protein 6.5 g/dL (6.3-8.2) 01/09/22 21:26 Albumin 4.1 g/dL (3.9-5) 01/09/22 21:26 Albumin/Globulin Ratio 1.7 % 01/09/22 21:26 Procalcitonin 0.56 ng/mL (<0.15) 01/09/22 21:26 Urine Color Yellow (Yellow) 01/10/22 01:47 Urine Turbidity Clear (Clear) 01/10/22 01:47 Urine pH 6.0 (5.0-7.0) 01/10/22 01:47 Ur Specific [place] 1.010 (1.003-1.030) 01/10/22 01:47 Urine Protein 30 mg/dl mg/dL (Negative) 01/10/22 01:47 Urine Glucose (UA) Negative mg/dL (Negative) 01/10/22 01:47 Urine Ketones Negative mg/dL (Negative) 01/10/22 01:47 Urine Blood Negative (Negative) 01/10/22 01:47 Urine Nitrite Negative (Negative) 01/10/22 01:47 Ur Reducing Substances Not Reportable 01/10/22 01:47 Urine Bilirubin Negative (Negative) 01/10/22 01:47 Urine Ictotest Not Reportable 01/10/22 01:47 Urine Urobilinogen 0.0 mg/dL (<2.0) 01/10/22 01:47 Ur Leukocyte Esterase Negative (Negative) 01/10/22 01:47 Urine WBC (Auto) < 1.0 /HPF (0.0-6.0) 01/10/22 01:47 Urine RBC (Auto) 1.0 /HPF (0.0-6.0) 01/10/22 01:47 U Epithel Cells (Auto) 9.0 /HPF (0-13.0) 01/10/22 01:47 Urine Mucus Few /HPF 01/10/22 01:47 Urine Creatinine 65.3 mg/dL (0.1-20.0) H 01/10/22 19:50 Urine Sodium 37 mmol/L 01/10/22 19:50 Urine Opiates Screen Presumptive negative 01/10/22 01:47 Urine Methadone Screen Presumptive negative 01/10/22 01:47 Ur Barbiturates Screen Presumptive negative 01/10/22 01:47 Ur Phencyclidine Scrn Presumptive negative 01/10/22 01:47 Ur Amphetamines Screen Presumptive negative 01/10/22 01:47 U Benzodiazepines Scrn Presumptive negative 01/10/22 01:47 Urine Cocaine Screen Presumptive negative 01/10/22 01:47 U Marijuana (THC) Screen Presumptive negative 01/10/22 01:47 Drugs of Abuse Note Disclamer 01/10/22 01:47 SARS-CoV-2 (PCR) Negative (Negative) 01/09/22 21:15 Microbiology: Microbiology 01/10/22 03:21 Peripheral/Venous Blood Culture - Preliminary NO GROWTH AFTER 48 HOURS 01/10/22 03:21 Peripheral/Venous Blood Culture - Preliminary NO GROWTH AFTER 48 HOURS Lemon/IV: Voiding Method Toilet Active Medications - Current Medications Current Medications: Generic Name Dose Route Start Last Admin Trade Name Freq PRN Reason Stop Dose Admin Acetaminophen 650 mg 01/10/22 04:00 Acetaminophen 325 Mg Tab PO Q6H PRN Pain MILD(1-3)/Fever >100.5/CORTES Albuterol 2.5 mg 01/10/22 05:00 Albuterol 2.5 Mg/3 Ml Nebu IH Q3HRT PRN Shortness Of Breath Albuterol/Ipratropium 1 ampul 01/12/22 08:00 01/12/22 09:23 Ipratropium/Albuterol Sulfate 3 Ml Ampul.Neb IH 1 ampul TIDRT HAMLET Administration Atorvastatin Calcium 20 mg 01/10/22 22:00 01/11/22 22:09 Atorvastatin 20 Mg Tab PO 20 mg HS HAMLET Administration Benztropine Mesylate 2 mg 01/10/22 22:00 01/12/22 09:05 Benztropine 2 Mg Tab PO 2 mg BID HAMLET Administration Divalproex Sodium 500 mg 01/10/22 22:00 01/12/22 09:05 Divalproex Er 500 Mg Tab PO 500 mg BID HAMLET Administration Famotidine 20 mg 01/10/22 10:00 01/12/22 09:05 Famotidine 20 Mg/2 Ml Inj IV 20 mg DAILY HAMLET Administration Heparin Sodium (Porcine) 5,000 unit 01/10/22 06:00 01/12/22 05:42 Heparin 5,000 Unit/1 Ml Vial SUB-Q 5,000 unit Q8HR HAMLET Administration Levofloxacin/Dextrose 750 mg in 150 mls @ 100 mls/hr 01/12/22 10:00 01/12/22 09:04 Levaquin 750mg/150ml IV 100 mls/hr Q48HR HAMLET Administration Protocol Levetiracetam 500 mg 01/10/22 22:00 01/12/22 09:05 Levetiracetam 500 Mg Tab PO 500 mg BID HAMLET Administration Magnesium Hydroxide 30 ml 01/10/22 04:00 Magnesium Hydroxide (Mom) Oral Liqd Udc PO Q4H PRN Constipation Methylprednisolone Sodium Succinate 40 mg 01/10/22 06:00 01/12/22 05:42 Methylprednisolone Sod Succinate 40 Mg/1 Ml Inj IV 40 mg Q8HR HAMLET Administration Montelukast Sodium 10 mg 01/11/22 10:00 01/12/22 09:05 Montelukast 10 Mg Tab PO 10 mg DAILY HAMLET Administration Morphine Sulfate 2 mg 01/10/22 04:00 Morphine 2 Mg/1 Ml Inj IV Q4H PRN Pain, Moderate (4-6) Ondansetron HCl 4 mg 01/10/22 04:00 Ondansetron 4 Mg/2 Ml Inj IV Q8H PRN Nausea And Vomiting Quetiapine Fumarate 100 mg 01/11/22 22:00 01/11/22 22:09 Quetiapine 100 Mg Tab PO 100 mg HS HAMLET Administration Sodium Chloride 10 ml 01/10/22 10:00 01/12/22 09:05 Sodium Chloride 0.9% 10 Ml Flush Syringe IV 10 ml BID HAMLET Administration Sodium Chloride 10 ml 01/10/22 04:00 Sodium Chloride 0.9% 10 Ml Flush Syringe IV PRN PRN LINE FLUSH Nutrition/Malnutrition Assess - Dietary Evaluation Nutrition/Malnutrition Findings: Nutrition Notes Start: 01/10/22 14:45 Freq: Status: Active Protocol: Document 01/10/22 14:45 TIMA (Rec: 01/10/22 14:53 TIMA [id number]) Nutrition Notes Need for Assessment generated from: MD Order,Education Initial or Follow up Brief Note Current Diagnosis COPD,Hypertension,Respiratory Failure Other Pertinent Diagnosis Pneumonia, Hypotension, Seizure, Schizophrenia. Current Diet NPO (since 01/10 03:26). Height 5 ft 6 in Weight 75.977 kg [place] Body Weight (kg) 59.09 BMI 27.0 Weight change and time frame None provided at admission. Weight Status Overweight Subjective/Other Information RD consult for nutrition education assessment. Pt currently on NPO. Pt is on NIV/Bi-PaP+, O2 saturation @ 95%, according to Physical Assessment History notes. Pt has missing teeth, according to Physical Assessment History notes. Pt still in critical condition , not a candidate for Nutrition Education at the time, will assess feasibility on F/U. Percent of energy/protein needs met: Pt currently on NPO. Nutrition Intervention Follow-Up By: 01/17/22 Additional Comments Nutrition education will be provided at F/U, if feasible. Continue monitoring food tolerance, %PO intake of meals , and BM.
--- NOTE | 2022-01-12 13:01 | Progress Note ---
Assessment and Plan 56-year-old female with known history of COPD with home O2, seizure disorder and schizophrenia brought into the emergency room today via EMS accompanied by daughter for evaluation of shortness of breath. Patient was also slightly confused and daughter had indicated that patient presents this way when her CO2 is elevated. En route to the hospital patient was given some nebulizing treatments, Solu- Medrol, magnesium sulfate with some improvement. Upon arrival in the emergency room patient was found to be in respiratory distress with O2 saturation in the 80s patient was subsequently placed on nonrebreather. Most of the history was obtained from the daughter who was by the bedside as patient is unable to give any history at this time. During the course of her stay in the emergency room patient was found to be slightly hypotensive and was given boluses of IV fluid. Work-up in the emergency room , chest x-ray shows nonspecific but basilar opacities which could represent pneumonia or atelectasis. CT angiogram of the chest shows no evidence of pulmonary embolism. There is minimal tree-in-bud attenuation right upper lobe compatible with reactive or inflammatory airway disease. Patient has been admitted with COPD exacerbation with possible underlying pneumonia. Patient has history of smoking 1/2 a pack cigaretts a day x 42 years. Still smoking despite her COPD. Counselled to stop smoking. Denies alcohol or drug abuse. She works in [employer] in [place]. Patient is single, Has one daughter. Allergic to pencillins. Patient is awake. Patient is on 6L O2 by nasal cannula. O2 saturation 95%. Patient appears weak. No acute respiratory distress. Patient afebrile. No leukocytosis. BP 112/69, pulse 83, RR 18. Chest x-ray done on 01/09/22 reported Nonspecific bibasilar opacities could represent pneumonia or atelectasis. CTA Chest with contrast done on 01/09/22 reported: no CT evidence for pulmonary embolism; Minimal tree-in-bud attenuation right upper lobe compatible with reactive or inflammatory airways disease. Patient is on duo-neb aerosol treatment, Famotidine, SubQ Heparin, and Levaquin. Patient was seen in Telemetry. I spent critical care time of 37 minutes, talking to the patient and obtaining h istory, review the chart, review chest xray, CTA of chest, lab results, talking to the nursing staff and work up plan of treatment in this critically ill patient with exagerbation of COPD and respiratory failure. - Patient Problems (1) Altered mental status Current Visit: Yes Status: Acute Plan to address problem: Management per primary care and neurology. (2) COPD exacerbation Current Visit: Yes Status: Acute Plan to address problem: O2 6L by nasal cannula. Bipap standby in the room. Continue IV Solumedrol. Continue subq heparin. Continue Famotidine. Continue Levaquin. PFTs as out patient. (3) Respiratory acidosis with metabolic acidosis Current Visit: Yes Status: Acute Plan to address problem: O2 6L by nasal cannula. Bipap standby in the room. Continue IV Solumedrol. Continue subq heparin. Continue Famotidine. Continue Levaquin. (4) Seizure disorder Current Visit: Yes Status: Acute Plan to address problem: Management as per primary care and neurology. (5) Schizophrenia Current Visit: Yes Status: Acute Plan to address problem: If any problem with Schizophrenia, recommend to consult psychiatry. (6) Tobacco use disorder Current Visit: Yes Status: Acute Plan to address problem: Counselled to stop smoking. Subjective Date of service: 01/12/22 Principal diagnosis: Acute on Chronic Hypoxemic Resp Failure; AE-COPD; RICHI; Thrombocytopenia Interval history: 56-year-old female with known history of COPD with home O2, seizure disorder and schizophrenia brought into the emergency room today via EMS accompanied by daughter for evaluation of shortness of breath. Patient was also slightly confused and daughter had indicated that patient presents this way when her CO2 is elevated. En route to the hospital patient was given some nebulizing treatments, Solu- Medrol, magnesium sulfate with some improvement. Upon arrival in the emergency room patient was found to be in respiratory distress with O2 saturation in the 80s patient was subsequently placed on nonrebreather. Most of the history was obtained from the daughter who was by the bedside as patient is unable to give any history at this time. During the course of her stay in the emergency room patient was found to be slightly hypotensive and was given boluses of IV fluid. Work-up in the emergency room , chest x-ray shows nonspecific but basilar opacities which could represent pneumonia or atelectasis. CT angiogram of the chest shows no evidence of pulmonary embolism. There is minimal tree-in-bud attenuation right upper lobe compatible with reactive or inflammatory airway disease. Patient has been admitted with COPD exacerbation with possible underlying pneumonia. Patient has history of smoking 1/2 a pack cigaretts a day x 42 years. Still smoking despite her COPD. Counselled to stop smoking. Denies alcohol or drug abuse. She works in [employer] in [place]. Patient is single, Has one daughter. Allergic to pencillins. Patient is awake. Patient is on 6L O2 by nasal cannula. O2 saturation 95%. Patient appears weak. No acute respiratory distress. Patient afebrile. No leukocytosis. BP 112/69, pulse 83, RR 18. Chest x-ray done on 01/09/22 reported Nonspecific bibasilar opacities could represent pneumonia or atelectasis. CTA Chest with contrast done on 01/09/22 reported: no CT evidence for pulmonary embolism; Minimal tree-in-bud attenuation right upper lobe compatible with reactive or inflammatory airways disease. Patient is on duo-neb aerosol treatment, Famotidine, SubQ Heparin, and Levaquin. Objective Vital Signs - 12hr 01/12/22 01/12/22 01/12/22 04:00 05:50 07:18 Temperature 97.5 F L 97.9 F Pulse Rate 82 74 87 Pulse Rate [ Anterior] Respiratory 18 18 Rate Respiratory Rate [Anterior] Blood Pressure 99/58 Blood Pressure 99/61 [Left] O2 Sat by Pulse 97 93 Oximetry 01/12/22 01/12/22 01/12/22 07:55 08:00 09:30 Temperature Pulse Rate 79 Pulse Rate [ 92 H Anterior] Respiratory Rate Respiratory 20 Rate [Anterior] Blood Pressure Blood Pressure [Left] O2 Sat by Pulse 93 Oximetry 01/12/22 11:17 Temperature 97.5 F L Pulse Rate 89 Pulse Rate [ Anterior] Respiratory 18 Rate Respiratory Rate [Anterior] Blood Pressure 112/69 Blood Pressure [Left] O2 Sat by Pulse 90 Oximetry Constitutional: no acute distress, alert Eyes: non-icteric ENT: oropharynx moist Neck: supple, no lymphadenopathy, no JVD Effort: mildly labored Ascultation: Bilateral: diminished breath sounds, wheezes (faint expiratory), other (prolonged expiratory phase) Percussion: Bilateral: not dull Cardiovascular: regular rate and rhythm Gastrointestinal: normoactive bowel sounds, soft, non-tender, non-distended Integumentary: normal Extremities: no cyanosis, no edema, pink and warm, pulses normal Neurologic: normal mental status, non-focal exam (grossly), pupils equal and round, motor strength normal and, other (L>R upper extremity / facial tremors (chronic)) Psychiatric: other (unable to evaluate because of her mental status.) CBC and BMP: 01/12/22 05:08 01/12/22 05:08 ABG, PT/INR, D-dimer: ABG ABG pH 7.319 pH Units (7.350-7.450) L 01/09/22 22:00 ABG pCO2 49.3 mm Hg 01/09/22 22:00 ABG pO2 166.2 mm Hg (80.0-90.0) H 01/09/22 22:00 ABG O2 Saturation 98.9 % (95.0-99.0) 01/09/22 22:00 PT/INR, D-dimer D-Dimer 561.38 ng/mlDDU (0-234) H 01/09/22 21:26 Abnormal lab findings: Abnormal Labs 01/09/22 01/09/22 01/09/22 21:26 21:26 21:26 RBC Hct 43.3 H MCV 109 H MCH 36 H RDW 13.1 L Plt Count 103 L Lymph % (Auto) Lymph # (Auto) Seg Neutrophils % D-Dimer 561.38 H ABG pH ABG pO2 Sodium 135 L Chloride 96.9 L Carbon Dioxide BUN 22 H Creatinine 1.5 H Glucose POC Glucose Calcium Magnesium 2.50 H AST 71 H C-Reactive Protein Urine Creatinine 01/09/22 01/10/22 01/10/22 22:00 09:27 10:54 RBC Hct MCV MCH RDW Plt Count Lymph % (Auto) Lymph # (Auto) Seg Neutrophils % D-Dimer ABG pH 7.319 L ABG pO2 166.2 H Sodium Chloride Carbon Dioxide BUN Creatinine Glucose POC Glucose 118 H Calcium Magnesium AST C-Reactive Protein 6.80 H Urine Creatinine 01/10/22 01/11/22 01/11/22 19:50 04:21 04:21 RBC 3.41 L Hct MCV 108 H MCH 37 H RDW 12.7 L Plt Count 89 L Lymph % (Auto) 11.7 L Lymph # (Auto) 0.7 L Seg Neutrophils % 82.4 H D-Dimer ABG pH ABG pO2 Sodium Chloride Carbon Dioxide BUN Creatinine Glucose 125 H POC Glucose Calcium 7.9 L Magnesium AST C-Reactive Protein Urine Creatinine 65.3 H 01/12/22 01/12/22 05:08 05:08 RBC 3.45 L Hct MCV 110 H MCH 36 H RDW 12.7 L Plt Count 82 L Lymph % (Auto) Lymph # (Auto) Seg Neutrophils % D-Dimer ABG pH ABG pO2 Sodium Chloride Carbon Dioxide 31 H BUN 21 H Creatinine Glucose 122 H POC Glucose Calcium 8.1 L Magnesium AST C-Reactive Protein Urine Creatinine Chest x-ray: report reviewed, image reviewed CT scan - chest: report reviewed, image reviewed Additional Studies: CHEST 1 VIEW 01/09/2022 8:41 PM INDICATION / CLINICAL INFORMATION: SOB. Altered mental status. History of COPD. COMPARISON: Acute abdominal series from 11/10/2008. FINDINGS: SUPPORT DEVICES: None. HEART / MEDIASTINUM: No significant abnormality. LUNGS / PLEURA: There are nonspecific bibasilar opacities, right greater than left. No significant pleural effusion. No pneumothorax. ADDITIONAL FINDINGS: No significant additional findings. IMPRESSION: Nonspecific bibasilar opacities could represent pneumonia or atelectasis. CTA CHEST WITH CONTRAST 01/09/22 INDICATION / CLINICAL INFORMATION: SAT MID 80S W/ ELEVATED DDIMER; PE. TECHNIQUE: Axial CT images were obtained through the chest after injection of 100 cc Omnipaque 350 IV contrast. 3 plane MIP and/or 3D reconstructions were produced. All CT scans at this location are performed using CT dose reduction for ALARA by means of automated exposure control. COMPARISON: None available. FINDINGS: VASCULAR FINDINGS: PULMONARY ARTERY: Pulmonary artery is normal in size. No filling defects are present compatible with pulmonary artery embolus.. THORACIC AORTA: No significant abnormality. CORONARY ARTERY CALCIFICATION: Absent -- None. NONVASCULAR FINDINGS: LOWER NECK: Soft tissues and musculature of the lower neck demonstrate no sig nificant abnormality. The thyroid demonstrates no significant abnormality. HEART: No significant abnormality. Trace pericardial fluid. MEDIASTINUM / KRISTYN: No significant abnormality. ESOPHAGUS: No significant abnormality. LYMPH NODES: No adenopathy within the axilla, mediastinum, or kristyn. LUNGS: Lungs are blurred by motion. Moderate centrilobular emphysema is present. Tree-in-bud nodular airspace attenuation right upper lobe. Mild dependent atelectasis bilaterally. The lower lungs demonstrate bronchial wall thickening. PLEURA: Trace dependent bilateral pleural effusions. No pneumothorax. THORACIC SOFT TISSUES: No significant abnormality of the chest wall or upper thoracic musculature. BONES: No significant skeletal abnormalities. ADDITIONAL CHEST FINDINGS: None. UPPER ABDOMEN: No significant abnormality. IMPRESSION: 1. No CT evidence for pulmonary embolism. 2. Minimal tree-in-bud attenuation right upper lobe compatible with reactive or inflammatory airways disease. Allied health notes reviewed: nursing
[2022-01-12] MEDS: TIOTROPIUM 18 MCG CAP INHALATION IH SCH (14:11)
[2022-01-12] MEDS: QUEtiapine 100 MG TAB PO SCH (21:44)
[2022-01-13] MEDS: methylPREDNISolone Sod Succinate 40 MG/1 ML INJ IV SCH ×2 (05:38→12:59)
[2022-01-13] MEDS: HEPARIN 5,000 UNIT/1 ML VIAL SUB-Q SCH ×3 (05:38→13:00)
[2022-01-13] MEDS: IPRATROPIUM/ALBUTEROL SULFATE 3 ML AMPUL.NEB IH SCH ×2 (08:08→13:35)
[2022-01-13] MEDS: TIOTROPIUM 18 MCG CAP INHALATION IH SCH (08:25)
[2022-01-13] MEDS: levETIRAcetam 500 MG TAB PO SCH (09:07)
[2022-01-13] MEDS: DIVALPROEX ER 500 MG TAB PO SCH (09:08)
[2022-01-13] MEDS: MONTELUKAST 10 MG TAB PO SCH (09:08)
[2022-01-13] MEDS: BENZTROPINE 2 MG TAB PO SCH (09:08)
[2022-01-13] MEDS ORDERED: NON-FORMULARY EACH (Tiotropium Bromide [Spiriva Respimat] 4 GM Mist.Inhal) IH SCH (10:00)
[2022-01-13] MEDS ORDERED: FAMOTIDINE 20 MG TAB PO SCH (10:00)
[2022-01-13] MEDS ORDERED: levoFLOXacin 750 MG TAB PO SCH (10:00)
--- NOTE | 2022-01-13 10:50 | Discharge Summary ---
Providers - Providers Date of Admission: 01/10/22 03:23 Date of discharge: 01/13/22 Attending physician: SARAH FOSTER 01/10/22 03:23 Consult to Dietitian/Nutrition [CONS] Routine Physician Instructions: Reason For Exam: Reason for Consult: Diet education Consult to Physician [CONS] Routine Comment: noted dr. de oliveira o/jeb cottrell Consulting Provider: ABDULLAHI RODRIGUEZ Physician Instructions: Reason For Exam: Acute on chronic resp. Failure 01/11/22 10:56 Occupational Therapy Evaluate and Treat [CONS] Routine Comment: Reason For Exam: Debility Physical Therapy Evaluation and Treat [CONS] Routine Comment: Reason For Exam: Debility Primary care physician: RAULITO SIN MD Hospitalization Reason for admission: SOB Condition: Stable Hospital course: This is a 56-year-old female with know past medical history of COPD, chronic respiratory failure, O2 dependent at home, seizure disorder, and schizophrenia admitted for acute on chronic respiratory failure and COPD exacerbation Assessment and Plan #Acute on Chronic Respiratory Failure #COPD Exacerbation #Bronchitis #O2 Dependent at home #Current Smoker - Presented with SOB and hypoxia requiring continuous Bipap - CXR reveals nonspecific bibasilar opacities which could represent pneumonia or atelectasis. - CTA chest shows no evidence of pulmonary embolism. There is minimal tree-in-bud attenuation right upper lobe compatible with reactive or inflammatory airway disease. - Continue IV steroids, Nebx treatment, and IV Abx - Continue O2 supplementation and wean down to home O2 at 2L NC as tolerated - Continue SPO2 monitoring for SPO2 goal above 92% #Sepsis - Presented with low grade fever, hypotension, and tachycardia, dx of PNA - Maintain MAP above 65 - Continue current empiric IV Abx for now. #Bronchitis - CXR reveals nonspecific bibasilar opacities which could represent pneumonia or atelectasis. - CTA chest shows no evidence of pulmonary embolism. There is minimal tree-in-bud attenuation right upper lobe compatible with reactive or inflammatory airway disease. Bronchial thickening noted - Blood cultures with NGTD, procal negative - Consider D/C IV Abx if procal is normal - F/U on cultures - Daily CBC monitor - Consider ID consult if febrile or/and if leukocytosis occur #Acute Kidney Injury(RICHI) most likely ATN - probably due to hypoperfusion/hypotension - Baseline renal function is unknown, Scr normalized post IVF hydration - Continue rehydration with cont. IVF - Strict intake and output - Avoid nephrotoxic medications; Renally dose medications - Monitor and replace electrolytes as needed #Toxic Metabolic Encephalopathy #Tardive Dyskinesia #H/o Seizure Disorder and Schizophrenia - Presented with AMS, probably due hypercapnia vs infectious process - On Continue Bipap and Iv Abx, mentation improved this am - CT head w/o showed no acute abnormalities - Tardive Dyskinesia noted. Per patient's daughter this is not new, patient has been evaluated by a Neurologist and it was determined that its probably side effects from psych meds. Patient is on Congentin - Resumed home meds once list available #Thrombocytopenia(POA) - Presented with low plt - No s/s of any active bleeding, H&H stable - On Heparin SubQ - Continue to trend CBC #Nicotine Dependence - Per patient's family, patient smoke close to a pack of cigarettes a day. - Smoking cessation education provided to patient and patient's daughter at the bedside. They verbalized understanding and agreed with the info provided - Nicotine patch ordered #GI/DVT Prophylaxis - PPI- Pepcid - Heparin SubQ - SCDs to bilateral lower extremities while in bed Hospital Course to Date: 01/10: Remains on continuous Bipap. BP remains bordeline this am. Continue IV steroids, current empric IV abx, and continuous IVF X1bag. Cultures, procal and CRP pending. Continue O2 supplementation, wean O2 supplementation once more awake. Resume home meds once list is available. 01/11: Stable on home O2 requirement. Hypotensive overnight, additional IVF given, VSS this am. Continue IV steroids for now. Procal is pending, consider D/C IV Abx if procal is normal. [facility] is also following. Patient is stable for transfer to Telemetry. 01/12: Patient with complaints of tremors which as noted above is likely secondary to tardive dyskinesia. Continue Cogentin 2 mg p.o. twice daily. I have placed a call to her primary neurologist office for further follow-up. Awaiting return call. Continue IV antibiotics for pneumonia. Patient appears to be near her baseline respiratory status at 3 L O2. Patient is on home O2 of 2 L. PT evaluation for discharge needs 01/13: Patient is back to baseline with respiratory status. Patient will be discharged home with antibiotics and tapering dose of steroids. Patient should follow-up with neurologist regarding tardive dyskinesia. I discussed the case with the patient and the daughter. Dedicated discharge time 35 minutes Disposition: 01 HOME / SELF CARE / HOMELESS Final Discharge Diagnosis (Prints w/discharge instructions): Acute on chronic respiratory failure, COPD exacerbation, bronchitis, tobacco abuse, sepsis, acute kidney injury secondary to ATN, toxic metabolic encephalopathy, tardive dyskinesia, history of seizure disorder and schizophrenia, thrombocytopenia Core Measure Documentation - Palliative Care Palliative Care/ Comfort Measures: Not Applicable - Core Measures Any of the following diagnoses?: none Exam - Constitutional Vitals: Temp Pulse Resp BP Pulse Ox 97.4 F L 65 18 105/60 99 01/13/22 08:13 01/13/22 08:25 01/13/22 08:25 01/13/22 08:13 01/13/22 08:13 General appearance: Present: no acute distress, well-nourished - EENT Eyes: Present: PERRL ENT: hearing intact, clear oral mucosa - Neck Neck: Present: supple, normal ROM - Respiratory Respiratory effort: normal Respiratory: bilateral: CTA - Cardiovascular Heart Sounds: Present: S1 & S2. Absent: rub, click - Extremities Extremities: pulses symmetrical, No edema Peripheral Pulses: within normal limits - Abdominal General gastrointestinal: Present: soft, non-tender, non-distended, normal bowel sounds Female genitourinary: Present: normal - Integumentary Integumentary: Present: clear, warm, dry - Musculoskeletal Musculoskeletal: gait normal, strength equal bilaterally - Psychiatric Psychiatric: appropriate mood/affect, intact judgment & insight - Neurologic Neurologic: CNII-XII intact, moves all extremities Plan Activity: advance as tolerated Weight Bearing Status: Weight Bear as Tolerated Diet: regular Follow up with: RAULITO SIN MD [Primary Care Provider] - 3-5 Days Prescriptions: Benztropine [Cogentin] 2 mg PO BID #60 tab Divalproex ER [Depakote ER] 500 mg PO BID #60 tab Nicotine [Habitrol] 7 mg TD DAILY #30 patch levETIRAcetam [Keppra TAB] 500 mg PO BID #60 tab clonazePAM [Klonopin] 1 mg PO BID #60 tab AtorvaSTATin [Lipitor] 20 tab PO HS #30 tab QUEtiapine [SEROquel] 200 mg PO HS #30 tab Montelukast [Singulair] 10 mg PO DAILY #60 tab Tiotropium [Spiriva] 2.5 mcg INHALATION PRN 30 Days cap Tiotropium [place] [Spiriva Respimat] 2.5 gm IH DAILY 30 Days
--- NOTE | 2022-01-13 12:00 | Progress Note ---
Assessment and Plan Acute on Chronic Hypoxemic Respiratory Failure COPD Exacerbation Possible Pneumonia O2 Dependent at home Current Smoker Hypotension Hypovolemia vs Sepsis Possible Pneumonia R/o Sepsis Acute Kidney Injury(RICHI) most likely ATN Acute Metabolic Encephalopathy Possible Tardive Dyskinesia H/o Seizure Disorder and Schizophrenia Thrombocytopenia(POA) Nicotine Dependence - continue to wean supplemental oxygen to keep O2 sats > 90% - continue bronchodilators (QUANG & LABA) with pulm hygiene per RT - continue systemic steroids with slow taper - continue inhaled corticosteroids - avoid nephrotoxins, renally dose all medications - mobility protocols to prevent pressure ulcers - PT/OT as tolerated - Wound care per RN/WCT - continue accuchecks with glycemic control per SSI for target blood glucose < 180 mg/dL - tobacco abstinence strongly counseled at the bedside - home oxygen evaluation at discharge - GI & VTE prophylaxis - Flu & pneumovax per protocol - Pulmonary out patient follow up for PFTs and optimization of respiratory status - continue other care per attending / other consultants - prn analgesia per pain score ... re-evaluate in am & prn Subjective Date of service: 01/13/22 Principal diagnosis: Acute on Chronic Hypoxemic Resp Failure; AE-COPD; RICHI; Thrombocytopenia Interval history: Patient is seen today for: Acute on Chronic Hypoxemic Respiratory Failure; AE-CO PD; Possible Pneumonia; Hypovolemia vs Sepsis; RICHI; Possible Tardive Dyskinesia; H/o Seizure Disorder and Schizophrenia; Thrombocytopenia(POA) Seen and examined at bedside; 24hour events reviewed; nursing and respiratory care staff consulted; no adverse overnight events reported to me; resting in bed; feels a little better; Objective Vital Signs - 12hr 01/13/22 01/13/22 01/13/22 00:09 05:47 07:25 Temperature 98.2 F 97.3 F L Pulse Rate 95 H 74 65 Pulse Rate [ Anterior] Pulse Rate [ From Monitor] Respiratory 20 18 Rate Respiratory Rate [Anterior] Blood Pressure Blood Pressure 119/68 109/58 [Left] O2 Sat by Pulse 93 94 Oximetry 01/13/22 01/13/22 01/13/22 07:59 08:08 08:13 Temperature 97.4 F L Pulse Rate 74 Pulse Rate [ 60 Anterior] Pulse Rate [ 78 From Monitor] Respiratory 18 18 Rate Respiratory 18 Rate [Anterior] Blood Pressure 105/60 Blood Pressure [Left] O2 Sat by Pulse 95 96 99 Oximetry 01/13/22 08:25 Temperature Pulse Rate Pulse Rate [ 65 Anterior] Pulse Rate [ From Monitor] Respiratory Rate Respiratory 18 Rate [Anterior] Blood Pressure Blood Pressure [Left] O2 Sat by Pulse Oximetry Constitutional: no acute distress, alert Eyes: non-icteric ENT: oropharynx moist Neck: supple, no lymphadenopathy, no JVD Effort: mildly labored Ascultation: Bilateral: diminished breath sounds, wheezes (faint expiratory), other (prolonged expiratory phase) Percussion: Bilateral: not dull Cardiovascular: regular rate and rhythm Gastrointestinal: normoactive bowel sounds, soft, non-tender, non-distended Integumentary: normal Extremities: no cyanosis, no edema, pink and warm, pulses normal Neurologic: normal mental status, non-focal exam (grossly), pupils equal and round, motor strength normal and, other (L>R upper extremity / facial tremors (chronic)) Psychiatric: other (unable to evaluate because of her mental status.) CBC and BMP: 01/12/22 05:08 01/12/22 05:08 ABG, PT/INR, D-dimer: ABG ABG pH 7.319 pH Units (7.350-7.450) L 01/09/22 22:00 ABG pCO2 49.3 mm Hg 01/09/22 22:00 ABG pO2 166.2 mm Hg (80.0-90.0) H 01/09/22 22:00 ABG O2 Saturation 98.9 % (95.0-99.0) 01/09/22 22:00 PT/INR, D-dimer D-Dimer 561.38 ng/mlDDU (0-234) H 01/09/22 21:26 Abnormal lab findings: Abnormal Labs 01/09/22 01/09/22 01/09/22 21:26 21:26 21:26 RBC Hct 43.3 H MCV 109 H MCH 36 H RDW 13.1 L Plt Count 103 L Lymph % (Auto) Lymph # (Auto) Seg Neutrophils % D-Dimer 561.38 H ABG pH ABG pO2 Sodium 135 L Chloride 96.9 L Carbon Dioxide BUN 22 H Creatinine 1.5 H Glucose POC Glucose Calcium Magnesium 2.50 H AST 71 H C-Reactive Protein Urine Creatinine 01/09/22 01/10/22 01/10/22 22:00 09:27 10:54 RBC Hct MCV MCH RDW Plt Count Lymph % (Auto) Lymph # (Auto) Seg Neutrophils % D-Dimer ABG pH 7.319 L ABG pO2 166.2 H Sodium Chloride Carbon Dioxide BUN Creatinine Glucose POC Glucose 118 H Calcium Magnesium AST C-Reactive Protein 6.80 H Urine Creatinine 01/10/22 01/11/22 01/11/22 19:50 04:21 04:21 RBC 3.41 L Hct MCV 108 H MCH 37 H RDW 12.7 L Plt Count 89 L Lymph % (Auto) 11.7 L Lymph # (Auto) 0.7 L Seg Neutrophils % 82.4 H D-Dimer ABG pH ABG pO2 Sodium Chloride Carbon Dioxide BUN Creatinine Glucose 125 H POC Glucose Calcium 7.9 L Magnesium AST C-Reactive Protein Urine Creatinine 65.3 H 01/12/22 01/12/22 05:08 05:08 RBC 3.45 L Hct MCV 110 H MCH 36 H RDW 12.7 L Plt Count 82 L Lymph % (Auto) Lymph # (Auto) Seg Neutrophils % D-Dimer ABG pH ABG pO2 Sodium Chloride Carbon Dioxide 31 H BUN 21 H Creatinine Glucose 122 H POC Glucose Calcium 8.1 L Magnesium AST C-Reactive Protein Urine Creatinine Allied health notes reviewed: nursing
[2022-01-13 13:39] VITALS: BP 119/92
== END 2022-01-13 17:40 | disposition home health service (06) | DRG 871 ==
LOC: ED 20:35 → CC1 01-10 03:23 → 4A 01-11 18:41
PROVIDERS: ADMIT Internal Medicine Geriatric Medicine; ATTEND Hospitalist
PROC: 4A033R1 Measurement of Arterial Saturation, Peripheral, Percutaneous Approach (ICD-10-PCS; principal; 2022-01-09)
PROC: 5A09357 Assistance with Respiratory Ventilation, Less than 24 Consecutive Hours, Continuous Positive Airway Pressure (ICD-10-PCS; 2022-01-09)
PROC: 5A09357 Assistance with Respiratory Ventilation, Less than 24 Consecutive Hours, Continuous Positive Airway Pressure (ICD-10-PCS; 2022-01-11)
DX: A41.9 Sepsis, unspecified organism (principal); J18.9 Pneumonia, unspecified organism; N17.0 Acute kidney failure with tubular necrosis; J96.21 Acute and chronic respiratory failure with hypoxia; G92.8 Other toxic encephalopathy; J44.1 Chronic obstructive pulmonary disease with (acute) exacerbation; J44.0 Chronic obstructive pulmonary disease with (acute) lower respiratory infection; Z20.822 Contact with and (suspected) exposure to COVID-19; D69.6 Thrombocytopenia, unspecified; F20.9 Schizophrenia, unspecified; F41.9 Anxiety disorder, unspecified; F32.9 Major depressive disorder, single episode, unspecified; G40.909 Epilepsy, unspecified, not intractable, without status epilepticus; Z71.6 Tobacco abuse counseling; G24.01 Drug induced subacute dyskinesia; Z88.0 Allergy status to penicillin
CPT/HCPCS: 36415; 70450; 71045; 71275; 80048; 80053; 80307; 81001; 82140; 82570; 82803; 82962; 83735; 83880; 84145; 84300; 85025; 85027; 85379; 86140; 87040; 93005; 94640; 94644; 94660; 94760; G0378; J3490; J1644; J1956; J2920; J7030; J7050; Q9967; U0003